=== PATIENT | female | born 1990 | race Caucasian/White ===

== ENCOUNTER 2021-11-16 08:11 | Outpatient (CLI) | payer OTHER, SELFPAY ==
--- NOTE | 2021-11-16 | ECG_ITS ---
Measurements Intervals [place] Rate: 59 P: 52 FL: 141 QRS: 35 QRSD: 84 T: 21 QT: 422 QTc: 421 Interpretive Statements SINUS BRADYCARDIA OTHERWISE NORMAL ECG NO PREVIOUS ECG AVAILABLE FOR COMPARISON Electronically Signed On 11-16-2021 16:12:11 CDT by Siddharth Montero M.D.
--- NOTE | ~2021-11-16 | XR_ITS ---
EXAMINATION: XR chest 2V 11/16/2021 10:48 INDICATION: Smoker. Bariatric surgery. PROCEDURE: 2 view chest COMPARISON: 02/07/2013 FINDINGS: The lungs are clear. The cardiomediastinal silhouette is within normal limits. There are no pleural effusions. There is no pneumothorax suspected. IMPRESSION: 1: NO ACUTE CARDIOPULMONARY DISEASE. Reviewed, dictated and finalized at location B.
[2021-11-16 08:40] LABS: Basophils Percent Auto 0.7 % (0.2-1.2); Eosinophils Absolute Auto 0.1 K/mm3 (0-0.3); Eosinophils Percent Auto 1.5 % (0-4.4); Hematocrit 40.2 % (37.0-47.0); Hemoglobin 13.3 g/dL (12.0-15.0); Immature Granulocyte Absolute 0.02 K/mm3 (0.00-0.031); Immature Granulocyte Percent A 0.3 % (0-0.5); Lymphocytes Absolute Auto 1.68 K/mm3 (0.9-3.2); Lymphocytes Percent Auto 27.5 % (18.3-44.2); Mean Corpuscular HGB Conc 33.1 g/dl (32-36); Mean Corpuscular Hemoglobin 29.6 pg (26-34); Mean Corpuscular Volume 89.3 fl (80-100); Mean Platelet Volume 10.6 fl (7.4-10.4); Monocytes Absolute Auto 0.4 K/mm3 (0.1-0.6); Monocytes Percent Auto 7.2 % (2.6-8.5); Neutrophils Absolute Auto 3.9 K/mm3 (1.3-6.7); Neutrophils Percent Auto 62.8 % (45.5-73.1); Platelet Count Result 219 k/mm3 (150-375); Red Cell Distribution Width 12.9 % (11.5-14.5); White Blood Count 6.1 K/mm3 (4.5-10.0)
[2021-11-16 08:49] LABS: INR 1.1; Prothrombin Time 13.6 Seconds (11.1-14.7)
[2021-11-16 08:52] LABS: Alanine Aminotransferase 16 U/L (4-35); Albumin Level 4.1 g/dL (3.5-5.1); Alkaline Phosphatase 65 U/L (38-126); Anion Gap 5 mmol/L (8-16); Aspartate Amino Transferase 30 U/L (14-36); Bilirubin,Total 0.4 mg/dL (0.2-1.3); Blood Urea Nitrogen 14 mg/dL (7-17); Calcium 8.5 mg/dL (8.4-10.2); Carbon Dioxide 27 mmol/L (22-30); Chloride 107 mmol/L (98-107); Estimated Glomerular Filt Rate > 60; Glucose 96 mg/dL (65-110); Potassium 4.2 mmol/L (3.4-5.0); Sodium 139 mmol/L (137-145)
[2021-11-16 08:56] LABS: Magnesium 1.8 mg/dL (1.6-2.3)
[2021-11-16 08:57] LABS: Cholesterol 173 mg/dL (0-200); HDL Direct 43 mg/dL; Hemoglobin A1C 5.1 % (<5.7)
[2021-11-16 08:59] LABS: Triglycerides 59 mg/dL (<150)
[2021-11-16 09:03] LABS: Parathyroid Intact 80.1 pg/mL (7.5-53.5)
[2021-11-16 09:06] LABS: LDL Cholesterol Direct 104 mg/dL
[2021-11-16 09:27] LABS: Iron 72 ug/dL (37-170)
[2021-11-16 09:36] LABS: Percent Iron Saturation 21 % (20-50)
[2021-11-16 10:33] LABS: Folic Acid 5.8 ng/mL (2.76->20)
[2021-11-16 10:45] LABS: Vitamin D 25 Hydroxy 31.2 ng/mL
[2021-11-22 17:38] LABS: Vitamin B1 11 nmol/L (8-30)
== END 2021-11-16 08:12 | disposition home or self-care (01) ==
LOC: ANHLAB 08:19
PROVIDERS: PCP Family Medicine
DX: E66.01 Morbid (severe) obesity due to excess calories (principal); Z01.818 Encounter for other preprocedural examination; R00.1 Bradycardia, unspecified
CPT/HCPCS: 36415; 71046; 80053; 80061; 82306; 82607; 82728; 82746; 83036; 83540; 83550; 83735; 83970; 84425; 84443; 85025; 85610; 85730; 93005

== ENCOUNTER 2021-12-14 07:58 | Outpatient (CLI) | payer OTHER, SELFPAY ==
[2021-12-14 08:57] LABS: Cortisol Random 1.01 ug/dL
== END 2021-12-14 07:59 | disposition home or self-care (01) ==
LOC: ANHLAB 08:00
PROVIDERS: PCP Family Medicine; Visit Provider Nurse Practitioner
DX: R63.5 Abnormal weight gain (principal)
CPT/HCPCS: 36415; 82533

== ENCOUNTER 2022-01-16 08:43 | Outpatient (CLI) | payer OTHER, SELFPAY ==
[2022-01-16 09:15] LABS: Alanine Aminotransferase 14 U/L (6-35); Alkaline Phosphatase 54 U/L (38-126); Anion Gap 9 mmol/L (8-16); Aspartate Amino Transferase 23 U/L (14-36); Bilirubin,Total 0.3 mg/dL (0.2-1.3); Blood Urea Nitrogen 16 mg/dL (7-17); Calcium 8.6 mg/dL (8.4-10.2); Carbon Dioxide 24 mmol/L (22-30); Chloride 109 mmol/L (98-107); Estimated Glomerular Filt Rate > 60; Glucose 101 mg/dL (65-110); Phosphorus 3.3 mg/dL (2.5-4.5); Potassium 4.1 mmol/L (3.4-5.0); Sodium 142 mmol/L (137-145)
[2022-01-16 09:27] LABS: Parathyroid Intact 47.4 pg/mL (7.5-53.5)
[2022-01-16 10:25] LABS: Vitamin D 25 Hydroxy 34.8 ng/mL
[2022-01-20 13:19] LABS: Ionized Calcium 4.9 mg/dL (4.8-5.6)
== END 2022-01-16 08:44 | disposition home or self-care (01) ==
LOC: ANHLAB 08:46
PROVIDERS: PCP Family Medicine; Visit Provider Nurse Practitioner
DX: E21.3 Hyperparathyroidism, unspecified (principal)
CPT/HCPCS: 36415; 80053; 82306; 82330; 83970; 84100

== ENCOUNTER 2022-01-17 08:29 | Outpatient (CLI) | payer OTHER, SELFPAY ==
[2022-01-17 12:47] LABS: Creatinine Urine 132.7 mg/dL
[2022-01-17 12:54] LABS: Creatinine 24 Hour Urine 1.7 gm/24 (0.8-1.8); Total Volume 24 Hour Urine 1300 ml
[2022-01-21 02:44] LABS: Total Volume 1400 mL; Urine Calcium 27.2 mg/dL
== END 2022-01-17 08:30 | disposition home or self-care (01) ==
PROVIDERS: PCP Family Medicine; Visit Provider Nurse Practitioner
DX: E21.3 Hyperparathyroidism, unspecified (principal)
CPT/HCPCS: 81050; 82340; 82570

== ENCOUNTER 2022-04-26 09:47 | Outpatient (CLI) | payer OTHER, SELFPAY ==
[2022-04-26 10:59] LABS: Alanine Aminotransferase 13 U/L (6-35); Albumin Level 4.4 g/dL (3.5-5.1); Alkaline Phosphatase 54 U/L (38-126); Anion Gap 8 mmol/L (8-16); Aspartate Amino Transferase 21 U/L (14-36); Bilirubin,Total 0.5 mg/dL (0.2-1.3); Blood Urea Nitrogen 12 mg/dL (7-17); Calcium 8.6 mg/dL (8.4-10.2); Carbon Dioxide 25 mmol/L (22-30); Chloride 106 mmol/L (98-107); Estimated Glomerular Filt Rate > 60; Glucose 91 mg/dL (65-110); Potassium 4.1 mmol/L (3.4-5.0); Sodium 139 mmol/L (137-145)
[2022-04-26 11:11] LABS: Parathyroid Intact 67.9 pg/mL (7.5-53.5)
[2022-04-26 11:17] LABS: Vitamin D 25 Hydroxy 42.1 ng/mL
[2022-04-29 23:30] LABS: LH 2.4 mIU/mL (***); Progesterone 1.4 ng/mL (***)
[2022-04-30 18:01] LABS: Testosterone Free 4.6 pg/mL (0.1-6.4); Testosterone Total 37 ng/dL (2-45)
[2022-05-01 14:45] LABS: DHEA-Sulfate 344 mcg/dL (23-266); Insulin Level Total 9.9 uIU/mL (<=19.6)
[2022-05-02 23:37] LABS: Estradiol, Ultrasensitive 31 pg/mL
== END 2022-04-26 09:48 | disposition home or self-care (01) ==
PROVIDERS: PCP Family Medicine; Visit Provider Nurse Practitioner
DX: R82.994 Hypercalciuria (principal); N92.6 Irregular menstruation, unspecified
CPT/HCPCS: 36415; 80053; 82306; 82627; 82670; 83001; 83002; 83525; 83970; 84144; 84402; 84403

== ENCOUNTER 2022-06-24 15:05 | Outpatient (CLI) | payer OTHER, SELFPAY ==
--- NOTE | ~2022-06-24 | CT_ITS ---
EXAMINATION: CT sinus wo con DATE: 06/24/2022 15:22 INDICATION: Sinusitis TECHNIQUE: Computed tomography (CT) of the paranasal sinuses was performed without intravenous contra st. The dose-length product was 288.76 mGy-cm. Automated exposure control and iterative reconstructio n technique were employed. COMPARISON: None FINDINGS: There is no significant mucosal thickening. No air-fluid levels. Mastoids are pneumatized. Leftward nasal septal deviation. Ostiomeatal units are patent. No air fluid levels or mucoperiosteal reaction IMPRESSION: 1. No significant sinus disease. Reviewed, dictated and finalized at location B.
== END 2022-06-24 15:06 | disposition home or self-care (01) ==
PROVIDERS: PCP Family Medicine; Visit Provider Otolaryngology
DX: J34.3 Hypertrophy of nasal turbinates (principal); J34.2 Deviated nasal septum; J34.89 Other specified disorders of nose and nasal sinuses; R09.81 Nasal congestion; J32.9 Chronic sinusitis, unspecified; R51.9 Headache, unspecified; R44.8 Other symptoms and signs involving general sensations and perceptions
CPT/HCPCS: 70486

== ENCOUNTER 2022-08-09 08:18 | Outpatient (CLI) | payer OTHER, SELFPAY ==
[2022-08-09 09:39] LABS: Alanine Aminotransferase 19 U/L (6-35); Albumin Level 4.8 g/dL (3.5-5.1); Alkaline Phosphatase 60 U/L (38-126); Anion Gap 8 mmol/L (8-16); Aspartate Amino Transferase 23 U/L (14-36); Bilirubin,Total 0.7 mg/dL (0.2-1.3); Blood Urea Nitrogen 18 mg/dL (7-17); Calcium 9.2 mg/dL (8.4-10.2); Carbon Dioxide 25 mmol/L (22-30); Chloride 104 mmol/L (98-107); Estimated Glomerular Filt Rate > 60; Glucose 92 mg/dL (65-110); Potassium 4.5 mmol/L (3.4-5.0); Sodium 137 mmol/L (137-145)
[2022-08-09 10:08] LABS: Vitamin D 25 Hydroxy 33.5 ng/mL
== END 2022-08-09 08:19 | disposition home or self-care (01) ==
LOC: ANHLAB 08:21
PROVIDERS: PCP Family Medicine; Visit Provider Nurse Practitioner
DX: R82.994 Hypercalciuria (principal)
CPT/HCPCS: 36415; 80053; 82306; 83970

== ENCOUNTER 2022-08-12 08:19 | Outpatient (CLI) | payer OTHER, SELFPAY ==
[2022-08-12 10:39] LABS: Creatinine 24 Hour Urine 1.4 gm/24 (0.8-1.8); Total Volume 24 Hour Urine 750 ml
[2022-08-15 12:48] LABS: Total Volume 800 mL; Urine Calcium 20.2 mg/dL
== END 2022-08-12 08:20 | disposition home or self-care (01) ==
LOC: ANHLAB 08:21
PROVIDERS: PCP Family Medicine; Visit Provider Nurse Practitioner
DX: R82.994 Hypercalciuria (principal)
CPT/HCPCS: 81050; 82340; 82570

== ENCOUNTER 2022-10-31 08:03 | Outpatient (CLI) | payer OTHER, SELFPAY ==
[2022-10-31 09:00] LABS: Basophils Absolute Auto 0.1 K/mm3 (0.0-0.1); Basophils Percent Auto 0.8 % (0.2-1.2); Eosinophils Absolute Auto 0.1 K/mm3 (0-0.3); Eosinophils Percent Auto 1.8 % (0-4.4); Hematocrit 41.1 % (37.0-47.0); Hemoglobin 13.5 g/dL (12.0-15.0); Immature Granulocyte Absolute 0.02 K/mm3 (0.00-0.031); Immature Granulocyte Percent A 0.3 % (0-0.5); Lymphocytes Percent Auto 35.2 % (18.3-44.2); Mean Corpuscular HGB Conc 32.8 g/dl (32-36); Mean Corpuscular Hemoglobin 30.2 pg (26-34); Mean Corpuscular Volume 91.9 fl (80-100); Mean Platelet Volume 10.9 fl (7.4-10.4); Monocytes Absolute Auto 0.5 K/mm3 (0.1-0.6); Monocytes Percent Auto 7.5 % (2.6-8.5); Neutrophils Absolute Auto 3.6 K/mm3 (1.3-6.7); Neutrophils Percent Auto 54.4 % (45.5-73.1); Platelet Count Result 220 k/mm3 (150-375); Red Blood Count 4.47 M/mm3 (4.2-5.4); Red Cell Distribution Width 13.2 % (11.5-14.5); White Blood Count 6.5 K/mm3 (4.5-10.0)
[2022-10-31 09:20] LABS: Iron 55 ug/dL (37-170); Rheumatoid Factor < 8.6 IU/ML (<12)
[2022-10-31 09:29] LABS: Percent Iron Saturation 14 % (20-50)
[2022-10-31 09:38] LABS: Free T4 Free Thyroxine 1.08 ng/mL (0.78-2.19)
[2022-10-31 10:22] LABS: Folic Acid 8.2 ng/mL (2.76->20)
[2022-11-03 04:57] LABS: Thyroid Peroxidase Antibodies 4 IU/mL (<9)
[2022-11-05 10:07] LABS: Reference Lab Test Result 56
[2022-11-11 09:14] LABS: Pancreatic Elastase, Stool 70
== END 2022-10-31 08:04 | disposition home or self-care (01) ==
PROVIDERS: PCP Family Medicine; Visit Provider Internal Medicine Endocrinology, Diabetes & Metabolism
DX: R53.83 Other fatigue (principal); R14.0 Abdominal distension (gaseous); E04.9 Nontoxic goiter, unspecified
CPT/HCPCS: 36415; 82024; 82607; 82653; 82728; 82746; 83540; 83550; 84439; 84443; 85025; 86003; 86038; 86376; 86430

== ENCOUNTER 2022-11-01 07:57 | Outpatient (CLI) | payer OTHER, SELFPAY ==
[2022-11-01 10:27] LABS: Cortisol Baseline 3.65 ug/dL
== END 2022-11-01 07:58 | disposition home or self-care (01) ==
LOC: ANHLAB 08:00
PROVIDERS: PCP Family Medicine; Visit Provider Internal Medicine Endocrinology, Diabetes & Metabolism
DX: R53.83 Other fatigue (principal); R14.0 Abdominal distension (gaseous); E04.9 Nontoxic goiter, unspecified; R63.5 Abnormal weight gain
CPT/HCPCS: 36415; 80299; 82533; 82653; 87324

== ENCOUNTER 2022-11-13 14:45 | Outpatient (CLI) | payer OTHER, SELFPAY ==
--- NOTE | ~2022-11-13 | US_ITS ---
EXAMINATION: US thyroid DATE: 11/13/2022 15:19 INDICATION: Goiter. TECHNIQUE: Multiple ultrasound images of the thyroid were obtained. COMPARISON: None. FINDINGS: The right thyroid lobe measures 5.5 x 2.2 x 1.5 cm. The left thyroid lobe measures 4.2 x 1.3 x 1.8 c m. There is normal echotexture and echogenicity throughout the thyroid gland. No discrete nodules id entified. Normal vascular flow is present. IMPRESSION: 1. Normal thyroid. Reviewed, dictated and finalized at location A. IMPRESSION: 1. Normal thyroid.
== END 2022-11-13 14:46 | disposition home or self-care (01) ==
PROVIDERS: PCP Physician Assistant; Visit Provider Internal Medicine Endocrinology, Diabetes & Metabolism
DX: E04.9 Nontoxic goiter, unspecified (principal)
CPT/HCPCS: 76536

== ENCOUNTER 2022-12-05 10:57 | Emergency (ER) | payer OTHER, SELFPAY ==
--- NOTE | ~2022-12-05 | CT_ITS ---
EXAMINATION: CT lumbar spine wo con DATE: 12/05/2022 13:15 INDICATION: Right-sided lumbar radiculopathy. TECHNIQUE: Computed tomography (CT) of the lumbar spine was performed without intravenous contrast. A utomated exposure control and iterative reconstruction technique were employed. The dose-length produ ct was 1017.74 mGy-cm. COMPARISON: Lumbar spine MRI 02/12/2011 FINDINGS: Bone alignment is normal. Vertebral body heights and intervertebral disc heights are normal . L5 is a transitional segment. The following disc levels are specifically discussed: L1-L2: The disc does not extend beyond the endplate margin. There is mild bilateral facet joint osteo arthritis. There is no neural foraminal stenosis. There is no central canal stenosis. L2-L3: The disc does not extend beyond the endplate margin. There is mild right facet joint osteoarth ritis. There is no neural foraminal stenosis. There is no central canal stenosis. L3-L4: The disc does not extend beyond the endplate margin. There is no facet joint osteoarthritis. T here is no neural foraminal stenosis. There is no central canal stenosis. L4-L5: The disc is bulging. There is mild bilateral facet joint osteoarthritis. There is mild bilater al neural foraminal stenosis. There is mild central canal stenosis. L5-S1: The disc does not extend beyond the endplate margin. There is no facet joint osteoarthritis. T here is no neural foraminal stenosis. There is no central canal stenosis. IMPRESSION: 1. Mild lumbar spondylosis. Reviewed, dictated and finalized at location A. IMPRESSION: 1. Mild lumbar spondylosis.
[2022-12-05 11:31] VITALS: BP 140/100; PULSE 82; RESP 18; TEMP 36.7; O2SAT 100
--- NOTE | 2022-12-05 12:19 | ED.BACK ---
HPI - Back Pain/Injury General Chief Complaint: Back Pain/Injury Stated Complaint: lower back pain Time Seen by Provider: 12/05/22 11:37 Source: patient Mode of arrival: ambulatory Limitations: no limitations History of Present Illness HPI Narrative: This is a 32-year-old female with PMH of low back pain who presents to the ED with chief complaint of low back pain onset x4 days. Patient states that she picked up her kid outside while they were playing on Friday and had pain the following day. Patient states that she has had problems with full extension. Pain is in the right lower back and extends down the right posterior lower extremity. Denies numbness, weakness, saddle anesthesia, urinary retention or bowel incontinence. Related Data Home Medications Medication Instructions Recorded Confirmed sumatriptan succinate 50 mg tablet 50 mg PO ONCE 09/10/21 06/03/22 liraglutide 0.6 mg/0.1 mL (18 mg/3 0.6 mg subcut DAILY 06/03/22 06/03/22 mL) subcutaneous pen injector (Victoza 2-Dakota) Allergies Allergy/AdvReac Type Severity Reaction Status Date / Time No Known Allergies Allergy Unknown Verified 09/13/22 09:38 Review of Systems Review of Systems: CONSTITUTIONAL: Denies fever, chills, or sweats. EYES: Denies visual changes, redness, or discharge. SKIN: Denies rash or itching. MUSCULOSKELETAL: Endorses back pain. Denies neck pain, joint pain, or myalgia. NEUROLOGIC: Denies headache, numbness, dizziness, or weakness. PSYCHIATRIC: Denies anxiety or depression. [facility] Surgical History Surgical History H/O hand surgery (~09/2021) Social History Social History Smoking status: Current every day smoker Tobacco type: cigarettes Alcohol intake: never Substance use: never Lack of Transportation: No Lack of Food: Never True Current Housing: I Have Housing Concerned About Future Housing: No Difficulty Paying Gas/Electric Bills: No Difficulty Paying for Meds: No Currently Unemployed: No Education: High School Diploma/GED Difficulty w/ Childcare or Family Care: No Exam Narrative: GENERAL: Well-appearing, well-nourished, and in no acute distress. HEAD: Normocephalic, atraumatic. EXTREMITIES: Minimal midline lumbar spinal tenderness. No cervical, thoracic, sacral spinal tenderness. Right SI tenderness present. Straight leg raise test on the right positive. MSK exam is otherwise benign. Normal range of motion. No edema. SKIN: Warm, dry, no rash. No overlying skin changes NEURO: Alert and oriented x3. No focal deficits. PSYCH: Normal mood and affect. Course Vital Signs Vital signs: Vital Signs Temperature 98.1 F 12/05/22 11:31 Pulse Rate 82 12/05/22 11:31 Respiratory Rate 18 12/05/22 11:31 Blood Pressure 140/100 H 12/05/22 11:31 Pulse Oximetry 100 12/05/22 11:31 Oxygen Delivery Room Air 12/05/22 11:31 Temperature 98.1 F 12/05/22 11:31 Pulse Rate 82 12/05/22 11:31 Respiratory Rate 18 12/05/22 11:31 Blood Pressure 140/100 H 12/05/22 11:31 Pulse Oximetry 100 12/05/22 11:31 Oxygen Delivery Room Air 12/05/22 11:31 MDM - Back Pain/Injury MDM Narrative Medical decision making narrative: This is a 32-year-old female with PMH of low back pain who presents to the ED with acute on chronic low back pain. Started Friday after picking up her kids while playing outside. Vital stable. Slightly hypertensive due to pain. CT of the lumbar spine was obtained and does show a disc herniation at the L4-L5 level. This is consistent with her exam as she does have a positive straight leg raise on the right. No red flag back signs or symptoms. She should follow-up with PCP on this. She will likely need therapy for this. Dose of prednisone given in the ED. Also given a short dose of the Medrol Dosepak. Patient is understanding and agreeable with plan for dis
[2022-12-05] MEDS: predniSONE 20 MG TABLET 40 MG PO (13:15)
== END 2022-12-05 13:59 | disposition home or self-care (01) ==
PROVIDERS: Emergency Provider Physician Assistant; PCP Physician Assistant
DX: M51.26 Other intervertebral disc displacement, lumbar region (principal); F17.210 Nicotine dependence, cigarettes, uncomplicated
CPT/HCPCS: 72131; 99284; J7512

== ENCOUNTER 2023-04-08 08:31 | Outpatient (CLI) | payer OTHER, SELFPAY ==
[2023-04-08 09:49] LABS: Cortisol Random 9.31 ug/dL
[2023-04-12 13:37] LABS: Adrenocorticotropic Hormone 8 pg/mL (6-50)
== END 2023-04-08 08:32 | disposition home or self-care (01) ==
LOC: ANHLAB 08:32
PROVIDERS: PCP Physician Assistant; Visit Provider Internal Medicine Endocrinology, Diabetes & Metabolism
DX: R94.7 Abnormal results of other endocrine function studies (principal)
CPT/HCPCS: 36415; 82024; 82533

== ENCOUNTER 2023-04-14 08:44 | Outpatient (CLI) | payer OTHER, SELFPAY ==
[2023-04-23 12:01] LABS: Cortisol, Saliva 0.16 mcg/dL
== END 2023-04-14 08:45 | disposition home or self-care (01) ==
LOC: ANHLAB 08:45
PROVIDERS: PCP Physician Assistant; Visit Provider Internal Medicine Endocrinology, Diabetes & Metabolism
DX: R94.7 Abnormal results of other endocrine function studies (principal)
CPT/HCPCS: 82530

== ENCOUNTER 2023-07-15 15:22 | Outpatient (CLI) | payer OTHER, SELFPAY ==
--- NOTE | ~2023-07-15 | XR_ITS ---
XR chest 2V DATE: 07/15/2023 15:43 INDICATION: Pneumonia TECHNIQUE: PA and lateral views COMPARISON: 11/16/2021 2 view chest FINDINGS: Normal heart size. No hilar or mediastinal enlargement. Mild left upper lobe infiltrate suggests pneumonia. The remaining lung maloney appear clear. No pleural effusion or pulmonary vascular congestion or pneum othorax. Included skeletal structures are unremarkable. IMPRESSION: Left upper lobe infiltrates suggesting pneumonia Reviewed, dictated and finalized at location L. ER WORKER
== END 2023-07-15 15:23 | disposition home or self-care (01) ==
PROVIDERS: PCP Emergency Medicine; Visit Provider Emergency Medicine
DX: R91.8 Other nonspecific abnormal finding of lung field (principal); J18.9 Pneumonia, unspecified organism
CPT/HCPCS: 71046

== ENCOUNTER 2024-03-19 10:12 | Outpatient (CLI) | payer OTHER, SELFPAY ==
[2024-03-19 10:41] LABS: Basophils Percent Auto 0.6 % (0.2-1.2); Eosinophils Absolute Auto 0.1 K/mm3 (0-0.3); Eosinophils Percent Auto 1.5 % (0-4.4); Hematocrit 42.2 % (37.0-47.0); Immature Granulocyte Absolute 0.02 K/mm3 (0.00-0.031); Immature Granulocyte Percent A 0.3 % (0-0.5); Lymphocytes Absolute Auto 1.82 K/mm3 (0.9-3.2); Lymphocytes Percent Auto 27.2 % (18.3-44.2); Mean Corpuscular HGB Conc 33.2 g/dl (32-36); Mean Corpuscular Volume 90.6 fl (80-100); Mean Platelet Volume 10.9 fl (7.4-10.4); Monocytes Absolute Auto 0.5 K/mm3 (0.1-0.6); Monocytes Percent Auto 7.9 % (2.6-8.5); Neutrophils Absolute Auto 4.2 K/mm3 (1.3-6.7); Neutrophils Percent Auto 62.5 % (45.5-73.1); Platelet Count Result 231 k/mm3 (150-375); Red Blood Count 4.66 M/mm3 (4.2-5.4); Red Cell Distribution Width 12.5 % (11.5-14.5); White Blood Count 6.7 K/mm3 (4.5-10.0)
[2024-03-19 10:51] LABS: Alanine Aminotransferase 16 U/L (6-35); Albumin Level 4.4 g/dL (3.5-5.1); Alkaline Phosphatase 44 U/L (38-126); Anion Gap 10 mmol/L (4-12); Aspartate Amino Transferase 24 U/L (14-36); Bilirubin,Total 0.5 mg/dL (0.2-1.3); Blood Urea Nitrogen 21 mg/dL (7-17); Calcium 9.3 mg/dL (8.4-10.2); Carbon Dioxide 24 mmol/L (22-30); Chloride 104 mmol/L (98-107); Estimated Glomerular Filt Rate > 60; Glucose 88 mg/dL (65-110); Potassium 4.3 mmol/L (3.4-5.0); Sodium 138 mmol/L (137-145)
[2024-03-19 10:54] LABS: Hemoglobin A1C 5.1 % (<5.7)
== END 2024-03-19 10:13 | disposition home or self-care (01) ==
LOC: ANHLAB 10:13
PROVIDERS: PCP Emergency Medicine; Visit Provider Emergency Medicine
DX: Z79.899 Other long term (current) drug therapy (principal)
CPT/HCPCS: 36415; 80053; 83036; 84443; 85025

== ENCOUNTER 2024-04-29 19:28 | Outpatient (NON) | payer OTHER, SELFPAY | END 2024-04-29 19:29 | disposition home or self-care (01) | LOC: ANHGOSHLAB 19:30 | PROVIDERS: PCP Emergency Medicine; Visit Provider Emergency Medicine | DX: R39.9 Unspecified symptoms and signs involving the genitourinary system (principal) | CPT/HCPCS: 87086; 87088 ==

== ENCOUNTER 2024-11-24 11:25 | Emergency (ER) | payer OTHER, SELFPAY ==
--- NOTE | ~2024-11-24 | CT_ITS ---
EXAMINATION: CT abdomen pelvis w con DATE: 11/24/2024 12:44 INDICATION: Right-sided pyelonephritis. Right upper quadrant abdominal pain. TECHNIQUE: Computed tomography (CT) of the abdomen and pelvis was performed with 100 mL Omnipaque 350 intravenous contrast. Automated exposure control and iterative reconstruction technique were employe d. The dose-length product was 708.46 mGy-cm. COMPARISON: Ultrasound 11/24/2024, CT lumbar spine 12/05/2022 FINDINGS: The visualized portions of the lung bases are clear without pneumonia or pleural effusion. The heart size is normal. No pericardial effusion. The liver, gallbladder, spleen, pancreas, and adre nal glands are normal. There is mild bilateral hydronephrosis. There are no dilated loops of bowel. T he appendix is normal. There are no pathologically enlarged lymph nodes. There is no free intraperito claudia fluid. There is mild lumbar spondylosis. IMPRESSION: 1. Mild bilateral hydronephrosis, new from 12/05/22. Reviewed, dictated and finalized at location A.
--- NOTE | ~2024-11-24 | US_ITS ---
EXAMINATION: US abdomen limited DATE: 11/24/2024 12:18 INDICATION: Right upper quadrant abdominal pain. TECHNIQUE: Multiple grayscale and Doppler ultrasound images of the abdomen were obtained. COMPARISON: None FINDINGS: The visualized portions of the head, body, and tail of the pancreas are normal. The liver i s normal without focal lesion. There is normal flow in main portal vein. The gallbladder is normal in size. No gallstones or gallbladder wall thickening. There is no sonographic Whitfield's sign. The commo n duct is normal and measures 3 mm. IMPRESSION: 1. Normal right upper quadrant ultrasound. Reviewed, dictated and finalized at location A.
[2024-11-24 11:27] VITALS: BP 135/79; PULSE 74; RESP 18; TEMP 36.6; O2SAT 99
[2024-11-24 11:43] VITALS: BP 118/78; PULSE 64; RESP 16; O2SAT 97
--- NOTE | 2024-11-24 11:46 | ED_ITS ---
HPI - Abdominal Pain General Chief Complaint: Abdominal Pain Stated Complaint: Right side abdominal pain Time Seen by Provider: 11/24/24 11:41 History of Present Illness HPI narrative: 34-year-old female with no significant pertinent past medical history presenting to the emergency room with right upper quadrant pain for the last 2 days. Pain is intermittent in nature, initially dull and aching and then followed by sharp stabbing sensations. Associated with some nausea without vomiting. Normal bowel movements, no dysuria. Denies chance of . No trauma or injury. No abdominal surgical history. She was otherwise in her normal state of health. Has not noticed any association with the pain when she eats but knows that she got nauseous after dinner last night. Related Data Allergies Allergy/AdvReac Type Severity Reaction Status Date / Time coconut Allergy Intermediate Rash Verified 11/24/24 11:26 Review of Systems 2 Review of Systems: As reviewed above in [facility] Surgical History Surgical History History of back surgery H/O hand surgery (~09/2021) Social History Social History Smoking status: Current every day smoker Tobacco type: e-cigarettes/vaping Alcohol intake: never Substance use: never Lack of Transportation: No Lack of Food: Never True Current Housing: I Have Housing Concerned About Future Housing: No Difficulty Paying Gas/Electric Bills: No Difficulty Paying for Meds: No Currently Unemployed: No Education: High School Diploma/GED Difficulty w/ Childcare or Family Care: No Exam 2 Narrative: GENERAL: [Well-appearing, well-nourished, and in no acute distress.] HEAD: [Normocephalic, atraumatic.] EYES: [PERRLA and EOMI.] ENT: Nares clear, no rhinorrhea or epistaxis. Mucous membranes moist. NECK: Supple. CHEST: [Clear to auscultation. No respiratory distress.] HEART: [Regular rate and rhythm]. No murmur heard. [Normal peripheral pulses.] ABDOMEN: [Soft, nondistended], tender in the right upper quadrant with a positive Whitfield sign, [No rigidity or guarding] EXTREMITIES: Normal range of motion. [No edema.] SKIN: Warm, dry, no rash. NEURO: [No focal deficits]. Alert and oriented [x3.] PSYCH: [Normal mood and affect.] Course Vital Signs Vital signs: Vital Signs Temperature 36.6 C 11/24/24 11:27 Pulse Rate 74 11/24/24 11:27 Respiratory Rate 18 11/24/24 11:27 Blood Pressure 135/79 11/24/24 11:27 Pulse Oximetry 99 11/24/24 11:27 Oxygen Delivery Room Air 11/24/24 11:27 Temperature 36.6 C 11/24/24 11:27 Pulse Rate 79 11/24/24 15:49 Respiratory Rate 16 11/24/24 15:49 Blood Pressure 115/79 11/24/24 15:49 Pulse Oximetry 100 11/24/24 15:49 Oxygen Delivery Room Air 11/24/24 11:27 MDM - Abdominal Pain MDM Narrative Medical decision making narrative: 34-year-old female presenting with right-sided upper quadrant abdominal pain associated with nausea without vomiting. Vital signs reassuring, no fever, tachycardia, hypoxia blood pressure elevations. She is otherwise healthy with no abdominal surgical history. She is tender in the right upper quadrant with a positive Whitfield sign. No history of gallbladder disease or cholecystitis to her knowledge. Associated nauseousness after eating last night, pain going on for 2 days. Considerations presently are for cholelithiasis versus cholecystitis. Low suspicion for renal colic or kidney stones. No present suspicion for liver pathology. Workup was ordered including a CBC, CMP, lipase, urinalysis and test. Right upper quadrant ultrasound was ordered. She was provided morphine for analgesia, Zofran fluid bolus and re-evaluated frequently. Workup shows no leukocytosis or anemia. Normal platelet count. Electrolytes within normal limits, normal renal function panel. Normal liver function panel. Urinalysis with signs of urinary tract infection with bacteria and white blood cells, leukocyte esterase. Negative test. Right upper quadrant ultrasound was unremarkable. CT scan was ordered this time for further delineation and to rule out pyelonephritis or obstructing kidney stone. CT scan shows mild bilateral hydro but no signs of pyelonephritis. Normal appendix. Given patient's urinary tract infection she was given a dose of Rocephin here but politely declined and wished to go home on oral antibiotics instead. She was given a prescription for Bactrim and encouraged to follow-up with her primary care provider or return with any new or worsening concerns. Medical Records Attestation: I reviewed the patient's medical records. Lab Data Attestation: I reviewed the patient's lab results. 11/24/24 11:47 11/24/24 11:47 Labs: Lab Results 11/24/24 11/24/24 Range/Units 11:46 11:47 WBC 8.5 (4.5-10.0) K/mm3 RBC 4.57 (4.2-5.4) M/mm3 Hgb 14.0 (12.0-15.0) g/dL Hct 40.7 (37.0-47.0) % MCV 89.1 (80-100) fl MCH 30.6 (26-34) pg MCHC 34.4 (32-36) g/dl RDW 12.5 (11.5-14.5) % Plt Count 227 (150-375) k/mm3 MPV 10.7 H (7.4-10.4) fl Immature Gran % (Auto) 0.2 (0-0.5) % Neut % (Auto) 63.9 (45.5-73.1) % Lymph % (Auto) 27.8 (18.3-44.2) % Sully % (Auto) 6.7 (2.6-8.5) % Eos % (Auto) 0.9 (0-4.4) % Baso % (Auto) 0.5 (0.2-1.2) % Lymph # (Auto) 2.37 (0.9-3.2) K/mm3 Sully # (Auto) 0.6 (0.1-0.6) K/mm3 Eos # (Auto) 0.1 (0-0.3) K/mm3 Baso # (Auto) 0.0 (0.0-0.1) K/mm3 Abs Immat Gran (auto) 0.02 (0.00-0.031) K/mm3 Absolute Neuts (auto) 5.4 (1.3-6.7) K/mm3 Absolute Nucleated RBC 0.000 (0.0-0.012) K/mm3 Nucleated RBC % 0.0 (0.0-0.2) % Sodium 136 L (137-145) mmol/L Potassium 3.8 (3.4-5.0) mmol/L Chloride 102 (98-107) mmol/L Carbon Dioxide 23 (22-30) mmol/L Anion Gap 11 (4-12) mmol/L BUN 24 H (7-17) mg/dL Creatinine 0.86 (0.7-1.0) mg/dL Estim Creat Clear Calc 83 ml/min Estimated GFR > 60 (59 - ) Glucose 90 (65-110) mg/dL Calcium 9.9 (8.4-10.2) mg/dL Total Bilirubin 0.9 (0.2-1.3) mg/dL AST 22 (14-36) U/L ALT 16 (6-35) U/L Alkaline Phosphatase 42 (38-126) U/L Total Protein 8.0 (6.3-8.2) g/dL Albumin 4.9 (3.5-5.1) g/dL Lipase 51 (23-300) U/L Urine Color Yellow (Yellow) Urine Appearance Cloudy H (Clear) Urine pH 5.5 (5.0-9.0) Ur Specific [place] 1.017 (1.001-1.035) Urine Protein Negative (Negative) mg/dL Urine Glucose (UA) Negative (Negative) mg/dL Urine Ketones Trace H (Negative) mg/dL Ur Blood (Man) Negative (Negative) Urine Nitrate Negative (Negative) Urine Bilirubin Negative (Negative) Urine Urobilinogen 0.2 (<2.0) mg/dL Leukocyte Esterase Rfl 2+ H (Negative) SANTINO/UL Urine RBC 0-2 (0-2) /hpf Urine WBC 21-50 H (0-3) /hpf Ur Squamous Epith Cells Moderate (Few) /hpf Urine Bacteria 2+ H /hpf Urine Casts 0-2 POC Urine HCG, Qual Negative (Negative) Imaging Data Attestation: I personally reviewed and interpreted this imaging study as follows: Radiologist's impression: ITS Impressions Abdomen Ultrasound 11/24/24 12:24 IMPRESSION: 1. Normal right upper quadrant ultrasound. Abdomen/Pelvis CT 11/24/24 12:47 IMPRESSION: 1. Mild bilateral hydronephrosis, new from 12/05/22. Discharge Plan Discharge Clinical Impression: UTI (urinary tract infection), Abdominal pain, Hydronephrosis Patient Disposition: Home, Self-Care Condition: Stable Instructions: Antibiotic Form, Urinary Tract Infection in Women (DC) Patient Language: Kyrgyz Prescriptions: New sulfamethoxazole-trimethoprim [Bactrim DS] 800-160 mg tablet 1 tablet PO Q12H Qty: 14 0RF No Action sulfamethoxazole-trimethoprim [Bactrim DS] 800-160 mg tablet 1 tablet PO Q12H Qty: 14 0RF albuterol sulfate 90 mcg/actuation HFA aerosol inhaler 1 inh inhalation Q4H PRN (Reason: shortness of breath or wheezing) Qty: 8.5 0RF sumatriptan succinate 50 mg tablet See Rx Instructions PO .COMPLEX Qty: 14 0RF Rx Instructions: take 1 tab at onset of headache; if no relief may repeat 1 tab after at least 2 hrs; max = 4 tabs/24 hr PO budesonide-formoterol [Symbicort] 80-4.5 mcg/actuation HFA aerosol inhaler 2 puff inhalation Q12H Qty: 10.2 5RF Zepbound 2.5 mg/0.5 mL pen injector 2.5 mg subcut WEEKLY Qty: 2 0RF Rx Instructions: for 4 weeks Follow-up/Referrals: Ursula Hatch APRN [Primary Care Provider] - Time of Disposition: 15:47
[2024-11-24 11:48] LABS: BEDSIDEPREGUCG Negative (Negative)
[2024-11-24 11:54] LABS: Basophils Percent Auto 0.5 % (0.2-1.2); Eosinophils Absolute Auto 0.1 K/mm3 (0-0.3); Eosinophils Percent Auto 0.9 % (0-4.4); Hematocrit 40.7 % (37.0-47.0); Immature Granulocyte Absolute 0.02 K/mm3 (0.00-0.031); Immature Granulocyte Percent A 0.2 % (0-0.5); Lymphocytes Absolute Auto 2.37 K/mm3 (0.9-3.2); Lymphocytes Percent Auto 27.8 % (18.3-44.2); Mean Corpuscular HGB Conc 34.4 g/dl (32-36); Mean Corpuscular Hemoglobin 30.6 pg (26-34); Mean Corpuscular Volume 89.1 fl (80-100); Mean Platelet Volume 10.7 fl (7.4-10.4); Monocytes Absolute Auto 0.6 K/mm3 (0.1-0.6); Monocytes Percent Auto 6.7 % (2.6-8.5); Neutrophils Absolute Auto 5.4 K/mm3 (1.3-6.7); Neutrophils Percent Auto 63.9 % (45.5-73.1); Platelet Count Result 227 k/mm3 (150-375); Red Blood Count 4.57 M/mm3 (4.2-5.4); Red Cell Distribution Width 12.5 % (11.5-14.5); White Blood Count 8.5 K/mm3 (4.5-10.0)
[2024-11-24] MEDS: MORPHINE SULFATE (*CRX) 4 MG/ML INJ IV PUSH (11:59)
[2024-11-24] MEDS: LACTATED RINGERS 1,000 ML 999 ML IV CONT (11:59)
[2024-11-24] MEDS: ONDANSETRON INJ 4 MG/2 ML VIAL IV PUSH (11:59)
[2024-11-24 12:00] LABS: Add Urine Microscopic? YES; Appearance Urine Cloudy (Clear); Bacteria Urine 2+ /hpf; Bilirubin Urine Negative (Negative); Blood Urine Negative (Negative); Color Urine Yellow (Yellow); Glucose Urine UA Negative (Negative); Ketones Urine Trace mg/dL (Negative); Leukocyte Esterase Ur 2+ LEU/UL (Negative); Nitrate Urine Negative (Negative); Non Pathogenic Casts 0-2; Protein Urine Negative (Negative); RBC Urine 0-2 /hpf (0-2); Specific Grav Ur 1.017 (1.001-1.035); Squamous Epithelial Cell Urine Moderate /hpf (Few); Urobilinogen Urine 0.2 mg/dL (<2.0); WBC Urine 21-50 /hpf (0-3); pH Urine 5.5 (5.0-9.0)
--- NOTE | 2024-11-24 12:03 | PC.NURSE ---
automated equipment engineer technician at bedside.
[2024-11-24 12:06] LABS: Alanine Aminotransferase 16 U/L (6-35); Albumin Level 4.9 g/dL (3.5-5.1); Alkaline Phosphatase 42 U/L (38-126); Anion Gap 11 mmol/L (4-12); Aspartate Amino Transferase 22 U/L (14-36); Bilirubin,Total 0.9 mg/dL (0.2-1.3); Blood Urea Nitrogen 24 mg/dL (7-17); Calcium 9.9 mg/dL (8.4-10.2); Carbon Dioxide 23 mmol/L (22-30); Chloride 102 mmol/L (98-107); Estimated CRCL calculation 83 ml/min; Estimated Glomerular Filt Rate > 60; Glucose 90 mg/dL (65-110); Lipase 51 U/L (23-300); Potassium 3.8 mmol/L (3.4-5.0); Sodium 136 mmol/L (137-145)
--- OUTSIDE RECORDS SUMMARY | 2024-11-24 13:01 | XMS_ITS | Referral Summary ---
Author Organization [place] [id number] [facility] Address [address] [place] [address] Care Team Providers Care Geophysics Teacher Name Role Phone Arleen Vu MD Primary Care Provider + Allergies Active Allergy Reactions Criticality Noted Date Comments Coconut Hives Medium 04/01/2019 Medications EPINEPHrine 0.3 mg/0.3 mL auto-injection syringeIndications :Anaphylaxis Inject 0.3 mL (0.3 mg total) into the muscle as instructed as needed for anaphylaxis Call 911 after use. 2 each 1 06/11/20 21 Active triamcinolone (KENALOG) 0.1 % creamIndications:D ermatitis Apply to affected area 1-2 times daily as needed. 80 g 1 09/17/19 22 Active Victoza 3-Dakota 0.6 mg/0.1 mL (18 mg/3 mL) injection 05/03/20 22 Active TRUEplus Pen Needle 32 gauge x 5/32 needle USE DIRECTED WITH VICTOZA 03/13/20 22 Active SUMAtriptan (IMITREX) 100 mg tabletIndications: Chronic migraine without aura without status migrainosus, not intractable Take 1 tablet (100 mg total) by mouth once as needed for migraine May repeat dose once in 2 hours if no relief. Do not exceed 2 doses in 24 hours. 9 tablet 11 05/08/20 22 Active spironolactone (ALDACTONE) 50 mg tablet Take 100 mg by mouth daily 06/10/20 22 Active guaiFENesin-codein e (GUAITUSS AC) liquid 100-10 mg/5 mLIndications:Bron chitis Take 5-10 mL by mouth every 4 (four) hours as needed for cough 120 mL 06/19/20 22 Active ondansetron (ZOFRAN) 4 mg tabletIndications: Chronic nonintractable headache, unspecified headache type Take 1 tablet (4 mg total) by mouth every 8 (eight) hours as needed for nausea or vomiting 10 tablet 2 11/09/19 23 Active methylPREDNISolone (Medrol, Dakota,) 4 mg Dosepack Take as directed on package 1 packet 01/23/20 23 Active Active Problems Problem Noted Date Diagnosed Date Abnormal weight 01/14/2023 01/22/2023 Injury of finger 01/09/2023 01/22/2023 Intertrigo 11/08/2022 01/22/2023 Nicotine dependence 11/08/2022 01/22/2023 Prediabetes 11/08/2022 01/22/2023 Hirsutism 06/10/2022 01/22/2023 Hypercalciuria 03/12/2022 01/22/2023 Irregular periods 03/12/2022 01/22/2023 Hyperparathyroidism 12/10/2021 01/22/2023 Snoring 11/27/2021 Assessment & Plan (11/27/2021 9:09 AM CDT): The patient presents with snoring and excessive daytime hypersomnia. I have recommended proceeding with a nocturnal polysomnogram with a split night protocol if necessary and no MSLT. She will follow-up here in 3 months. Abnormal weight gain 11/19/2021 Bilateral carpal tunnel syndrome 09/26/2021 Dermatitis 08/14/2021 Assessment & Plan (08/14/2021 8:44 AM SCHOOL COOK): Overall Condition Chronic Condition: Uncontrolled. Treatment: New Medication: oral tablets and creams prescribed as below. Follow up in 1 month Paresthesia of hand, bilateral 07/24/2021 Assessment & Plan (07/24/2021 9:16 AM SCHOOL COOK): Acute with a reported past history of carpal tunnel syndrome bilaterally, likely acute exacerbation of underlying condition-ordered a nerve conduction study with EMG, advised that she should be getting a call to schedule the test. Informed can wear braces at night if relieve symptoms. Informed will be contacted with results once test is completed, but can call office if has not been notified within 48 hours, with further recommendations depending on outcome of test. Chronic nonintractable headache 06/11/2021 Assessment & Plan (08/14/2021 8:45 AM SCHOOL COOK): Overall Condition Chronic Condition: Uncontrolled. Treatment: Recommended Therapeutic Lifestyle Modification and Medication Changes: Increase topiramate to 50mg BID Follow up in 3 months Assessment & Plan (06/11/2021 10:26 AM CDT): Overall Condition Chronic Condition: Uncontrolled. Treatment: New Medication: Start Topiramate. and Medication Changes: Stop propranol. Follow up in 3 months Generalized anxiety disorder 04/30/2021 Assessment & Plan (06/11/2021 10:26 AM CDT): Overall Condition Chronic Condition: Uncontrolled. Treatment: Recommended Therapeutic Lifestyle Modification and Medication Changes: Increase Lexapro to 20mg Follow up in 3 months Assessment & Plan (04/30/2021 12:38 PM CDT): Overall Condition Chronic Condition: Uncontrolled and New Diagnosis. Treatment: New Medication: Lexapro Follow up in 3 months Encounter for annual health examination 04/16/20 21 Class 3 severe obesity due t o excess calories without serious comorbidity with body mass index (BMI) of 45.0 to 49.9 in adult 02/05/2021 Assessment & Plan (11/19/2021 4:26 PM CDT): Notes: Minimal jammie-operative risk forModerate Risk Gastric Sleeve Surgery. Medically clear for on around November-December 2021. Overal Risk Factors Dx: Morbidly Obese. Recommedations: Pending Labs prior to surgery: WNL. pending EKG prior to Surgery: Not Recommneded. Referral clearance needed: None. Assessment & Plan (04/30/2021 12:38 PM CDT): Overall Condition Chronic Condition: Uncontrolled and New Diagnosis. Treatment: New Medication: Start Phentermine. and Recommended Therapeutic Lifestyle Modification Follow up in 3 months History of 12/17/2020 Overview (12/17/2020): G1 40wk infant weighed 9#, episiotomy G2: 40wk progressed to complete dilation, tried to push, NRFHTs, infant weighed 6lb, 35wks based on peds assessment Chronic migraine 01/20/2012 Assessment & Plan (04/16/2021 1:21 PM CDT): Overall Condition Chronic Condition: Uncontrolled. Treatment: New Medication: Start Propranolol for migraine prophalexis. Follow up in 3 months Immunizations Immunization Administration Dates Next Due Influenza, Unspecified 05/08/2022(Deferred: Elizabeth ent Refused) Social History Tobacco Use Types Packs/Day Years Used Date Smoking Tobacco: Every Day Cigarettes 0.8 5 Smokeless Tobacco: Current Tobacco Cessation:Ready to Q uit: Not Asked; Counseling Given: Not Answered Alcohol Use Standard Drinks/Week Comments Not Currently 0 (1 standard drink = 0.6 oz pur e alcohol) AUDIT-C Answer Date Recorded Q1: How often do you have a drink containing alc ohol? Never 10/26/2020 Average Number of Drinks Not on file 021 Q3: How often do you have si x or more drinks on one occasion? Never 10/26/2020 PHQ-2 Answer Date Recorded PHQ-2 Total Score (If total score is 3 or more points, staff should administer the PHQ-9) 0 07/23/2021 Comments No Sex and Gender Information Value Date Recorded Sex Assigned at Not on file Legal Sex Female 7:53 PM SCHOOL COOK Gender Identity Female 10/23/2020 10:30 AM SCHOOL COOK Sexual Orientation Straight 10/23/2020 10 :30 AM SCHOOL COOK Last Filed Vital Signs Vital Sign Reading Time Taken Comments Blood Pressure 116/78 05/08/2022 10:37 AM CDT Pulse 75 05/08/2022 10:37 AM CDT Temperature 36.7 C (98.1 F) 05/08/2022 10:37 AM CDT Respiratory Rate 18 05/08/2022 10:37 AM CDT Oxygen Saturation 99% 05/08/2022 10:37 AM CDT Inhaled Oxygen Concentration - - Weight 117.5 kg (259 lb) 06/19/2022 2:34 PM CDT Height 160 cm (5' 3 ) 06/19/2022 2:34 PM CDT Body Mass Index 45.88 06/19/2022 2:34 PM CDT Plan of Treatment Not on file Procedures Procedure Name Priority Date/Time Associated Diagnosis Comments THINPREP IMAGING PAP REFLEX HPV MRNA E6/E7 Routine 10/31/2017 11:16 AM SCHOOL COOK from Last 3 Months or Most Recently Relevant to Health Maintenance Results * ThinPrep Imaging Pap Reflex HPV mRNA E6/E7 (10/31/2017 11:16 AM SCHOOL COOK) CLINICAL INFORMATION [facility] HISTORICAL RESULTS Comment:Information not prov ided LMP: MIRENA [facility] HISTORICAL RESULTS PREV. PAP: [facility] HISTORICAL RESULTS Comment:NORMAL PREV. BX: [facility] HISTORICAL RESULTS Comment:INFORMATION NOT PROV IDED SOURCE: [facility] HISTORICAL RESULTS Comment:Cervix, Endocervix STATEMENT OF ADEQUACY: [facility] HISTORICAL RESULTS Comment:Satisfactory for thalia luation. Endocervical/transformation zone component present. INTERPRETATION/RESU LT: [facility] HISTORICAL RESULTS Comment:Negative for intraep ithelial lesion or malignancy. COMMENT: [facility] HISTORICAL RESULTS Comment:This Pap test has be en evaluated with computer assisted technology. CHILD LIFE SPECIALIST: [facility] HISTORICAL RESULTS Comment:MLO, CT(ASCP) CT scr eening location: [facility] [place] [address] [place] [address] 10/31/2017 11:1 6 AM SCHOOL COOK 11/06/2017 1:05 PM SCHOOL COOK Narrative [facility] HISTORICAL RESULTS - 11/06/2017 12:34 PM SCHOOL COOK 0 PERFORMING LAB: [facility] [address] [facility] [id number] Murphy Ramirez MD us Latoya Dawson MD LAB PATHOLOGY ORDERABLES Fin al Result [facility] HISTORICAL RESULTS from Last 3 Months or Most Recently Relevant to Health Maintenance Insurance [facility] Member Subscriber Plan / Payer (Ef fective 2019-Present) Name:Adenike Parry Jamel Relation to Subscriber:Self Name:Adenike Parry Payer ID:[id number] (NAIC) Group ID:Not on file Type:MEDICAID RISK OTHER Address: [address] [place], [place] [id number] [place] [address] [facility] [place] [place] [address] [facility] Care Teams Geophysics Teacher Relationship Specialty Start Date End Date Arleen Vu MD [address] [place] [address] [place] [address] PCP - General Family Medicine 01/10/23
--- OUTSIDE RECORDS SUMMARY | 2024-11-24 13:01 | XMS_ITS | Clinical Summary ---
Author Organization [place] [id number] [facility] Address [address] [place] [address] Care Team Providers Care Foundry Molder Name Role Phone Arleen Vu MD Primary [...] 08/14/2021 Assessment & Plan (08/14/2021 8:44 AM FAGOTING MACHINE OPERATOR): Overall Condition Chronic Condition: Uncontrolled. Treatment: New Medication: oral tablets and creams prescribed as below. Follow up in 1 month Paresthesia of hand, bilateral 07/24/2021 Assessment & Plan (07/24/2021 9:16 AM FAGOTING MACHINE OPERATOR): Acute with a reported past history of [...] 06/11/2021 Assessment & Plan (08/14/2021 8:45 AM FAGOTING MACHINE OPERATOR): Overall Condition Chronic Condition: Uncontrolled. Treatment: Recommended [...] Due Influenza, Unspecified 05/08/2022(Deferred: Elizabeth ent Refused) Surgical History Surgery Date Site/Laterality Comments EAR SURGERY 09/01/2009 - 08/31/2010 Left eardrum repair US ABDOMEN COMPLETE W LIVER DOPPLER (C) 08/24/2018 Right SECTION x 2 w epidurals WISDOM TOOTH EXTRACTION CARPAL TUNNEL RELEASE 10/18/2021 Left Medical History Medical History Date Comments Lower back pain Knee pain left Headache Miscarriage Covid 08/2021 Pt also had covi d in early 2019. Not hospitalized either time. No residual problems. Depression Obesity GERD (gastroesophageal reflux disease) N/a Migraines N/A Family History Medical History Relation Name Comments Hypertension Father Adrian Parry Obesity Father Adrian Parry Hypertension Mother Yessica Del Rosario Obesity Mother Yessica Del Rosario GI problems Sister 1 Obesity Sister 2 Sarah Mims Obesity Sister 3 Jeannette Parry Ovarian cancer Neg Hx Relation Name Status Comments Father Adrian Parry Alive Mother Yessica Del Rosario Alive Sister 1 Alive Sister 2 Sarah Robisono Sister 3 Jeannette Parry Social History Tobacco Use Types Packs/Day Years [...] on file Legal Sex Female 7:53 PM FAGOTING MACHINE OPERATOR Gender Identity Female 10/23/2020 10:30 AM FAGOTING MACHINE OPERATOR Sexual Orientation Straight 10/23/2020 10 :30 AM FAGOTING MACHINE OPERATOR Obstetrics History Para Term AB IAB SAB Ectopic Multiple Livin g Live Births 3 2 2 2 2 Date Outcome GA Total Labor Labor/2nd/3rd Weight Sex Type Anes PTL Marilyn A1 A5 Name Clin Term Term Last Filed Vital Signs Vital Sign Reading [...] 06/19/2022 2:34 PM CDT Plan of Treatment Health Maintenance Due Date Last Done Comments Hepatitis C Screening 1989 DTaP/Tdap/Td Vaccine (1 - Tdap) 2000 Hepatitis B Screening 2007 Pneumococcal vaccine <65 (1 of 2 - PCV) 2008 Cervical Cancer Screening 10/31/2018 10/31/2017 Depression Screening 07/23/2022 07/23/2021, 04/30/2021, 04/16/2021, Additional history exists Regular Well Visit/Exam 18-64 05/08/2023 05/08/2022, 04/16/2021, 11/14/2020 Influenza Vaccine (#1) 2024 HPV Vaccines Aged Out No longer eligi ble based on patient's age to complete this topic Varicella Vaccines Discontinued Procedures Procedure Name Priority Date/Time Associated Diagnosis Comments THINPREP IMAGING PAP REFLEX HPV MRNA E6/E7 Routine 10/31/2017 11:16 AM FAGOTING MACHINE OPERATOR from Last 3 Months or Most Recently Relevant to Health Maintenance Results * ThinPrep Imaging Pap Reflex HPV mRNA E6/E7 (10/31/2017 11:16 AM FAGOTING MACHINE OPERATOR) CLINICAL INFORMATION [facility] HISTORICAL RESULTS Comment:Information not prov ided LMP: MIRENA [facility] HISTORICAL RESULTS PREV. PAP: [facility] HISTORICAL RESULTS Comment:NORMAL PREV. BX: [facility] HISTORICAL RESULTS Comment:INFORMATION NOT PROV IDED SOURCE: [facility] HISTORICAL RESULTS Comment:Cervix, Endocervix STATEMENT OF ADEQUACY: [facility] HISTORICAL RESULTS Comment:Satisfactory for thalia luation. Endocervical/transformation zone component present. INTERPRETATION/RESU LT: [facility] HISTORICAL RESULTS Comment:Negative for intraep ithelial lesion or malignancy. COMMENT: [facility] HISTORICAL RESULTS Comment:This Pap test has be en evaluated with computer assisted technology. COMMERCIAL LINES SALES EXECUTIVE: [facility] HISTORICAL RESULTS Comment:MLO, CT(ASCP) CT scr eening location: [place] [address] [place] [address] 10/31/2017 11:1 6 AM FAGOTING MACHINE OPERATOR 11/06/2017 1:05 PM FAGOTING MACHINE OPERATOR Narrative [facility] HISTORICAL RESULTS - 11/06/2017 12:34 PM FAGOTING MACHINE OPERATOR 0 PERFORMING LAB: , [facility] [address] [facility] [phone] Murphy Ramirez MD us Latoya Dawson MD LAB PATHOLOGY ORDERABLES Fin al Result [facility] HISTORICAL RESULTS from Last 3 Months or Most Recently Relevant to Health Maintenance Insurance [facility] Care Teams Foundry Molder Relationship Specialty Start Date End Date Arleen Vu MD [address] [place] [address] [address] PCP - General Family Medicine 01/10/23
--- OUTSIDE RECORDS SUMMARY | 2024-11-24 13:01 | XMS_ITS | Clinical Summary ---
Author Organization [facility] Address [address] [place] [place] [address] Care Team Providers Care Neck Skewer Name Role Phone Joshua Peace MD Primary Care Provider [phone] Source Comments [facility],non-owned Affiliates and Associated Physician Practices is amultiple site organization consisting of ambulatory clinics and hospital sitesin [place], [place], [place] and [place]. This disclosure is being madepursuant to the Care Everywhere program and may not contain all information available regarding this patient. Last updated 18.[facility] Allergies Active Allergy Reactions Criticality Noted Date Comments Coconut Flavor Rash Medium 11/08/2021 Medications * Be aware that medications may not be up to date on this document. Alwaysverify current medications with the patient. Medication Sig Dispensed Refills Start Date End Date Status albuterol HFA (PROVENTIL;VENTOLIN ;PROAIR) 108 (90 BASE) MCG/ACT inhaler Inhale 2 Puffs by mouth every 4 hours as needed for Shortness of Breath or Wheezing. 1 Inhaler 1 10/13/2014 Active Additional Information Patient not taking.Reported on 01/24/2022 ondansetron (ZOFRAN) 4 MG tablet Take 1 Tab by mouth every 4 hours as needed for Nausea/Vomiting 10 Tab 0 03/07/2015 Active Additional Information Patient not taking.Reported on 01/24/2022 phentermine (ADIPEX-P) 37.5 MG tablet 09/18/2021 Active SUMAtriptan (IMITREX) 50 MG tablet 09/17/2021 Active ketoconazole (NIZORAL) 2 % cream APPLY TOPICALLY TO THE AFFECTED AREA TWICE DAILY 09/17/2021 Active triamcinolone acetonide (KENALOG) 0.1 % cream APPLY TOPICALLY TO THE AFFECTED AREA 1 TO 2 TIMES DAILY NEEDED 09/17/2021 Active EPINEPHrine (EPIPEN) 0.3 MG/0.3ML auto-injector pen INJECT 0.3 ML INTO THE MUSCLE INSTRUCTED NEEDED FOR ANAPHYLAXIS CALL 911 AFTER USE 06/11/2021 Active Multiple Vitamins-Minerals (CENTRUM SILVER) TABS Take 1 tablet by mouth daily with food Active calcium citrate TABS tablet Take 400 mg by mouth once daily Active VITAMIN D PO Take by mouth once daily Active Family History Medical History Relation Name Comments Cancer Paternal Grandmother Relation Name Status Comments Paternal Grandmother Social History Tobacco Use Types Packs/Day Years Used Date Smoking Tobacco: Every Day Cigarettes 0.5 6 Smokeless Tobacco: Never Tobacco Cessation:Ready to Q uit: Yes; Counseling Given: Yes Alcohol Use Standard Drinks/Week Comments No 0 (1 standard drink = 0.6 oz pur e alcohol) Sex and Gender Information Value Date Recorded Sex Assigned at Not on file Gender Identity Not on file Sexual Orientation Not on file Last Filed Vital Signs Vital Sign Reading Time Taken Comments Blood Pressure 138/88 12/07/2021 1:00 PM CDT Pulse 77 12/07/2021 1:00 PM CDT Temperature 36.6 C (97.8 F) 12/07/2021 1:00 PM CDT Respiratory Rate 16 12/07/2021 1:00 PM CDT Oxygen Saturation 99% 12/07/2021 1:00 PM CDT Inhaled Oxygen Concentration - - Weight 118.8 kg (262 lb) 01/24/2022 10:00 AM CDT per pt Height 159.8 cm (5' 2.91 ) 01/24/2022 10:00 AM C DT Body Mass Index 46.54 01/24/2022 10:00 AM CDT Plan of Treatment Health Maintenance Due Date Last Done Comments PAP SMEAR 1989 HIV SCREENING 2004 HEPATITIS C SCREENING 03/02/2007 DTAP/TDAP/TD VACCINES (1 - Tdap) 2008 HEPATITIS B VACCINE (1 of 3 - 19+ 3-dose series) 2008 PNEUMOCOCCAL VACCINE (1 of 2 - PCV) 2008 COVID-19 VACCINE (2023-2 5 season) 2024 INFLUENZA VACCINE (#1) 2024 DEPRESSION SCREENING 09/01/2024 ZOSTER VACCINE (1 of 2) 2039 HIB VACCINE Aged Out No longer eligi ble based on patient's age to complete this topic HPV VACCINE Aged Out No longer eligi ble based on patient's age to complete this topic MENINGOCOCCAL (Group B) VACC INE SHARED DECISION-MAKING Aged Out No longer eligibl e based on patient's age to complete this topic MENINGOCOCCAL GROUPS A/C/Y/W VACCINE Aged Out No longer eligible b ased on patient's age to complete this topic Insurance Payer Benefit Plan / Group Subscriber ID Effective Dates Phone Address Type WC PA[employer]OR GENERIC WC GENERIC [id number] Effective for all dates [address] [address] [place] [address] Worker's Comp [facility] MEDICA[facility] [id number] Effective for all dates ATTN CLAIMS DEPARTMENT [address] [place] [address] Medicaid Managed Care [facility] [place] [facility] [employer] [place] [id number] Effective for all dates ATTN CLAIMS DEPARTMENT [address] [place] [address] Medicaid Managed Care [facility] [employer] [facility] [place] [employer] [employer] [employer] [place] [id number] Effective for all dates ATTN CLAIMS DEPARTMENT [address] [place] [address] Medicaid Managed Care [facility] [place] [facility] [employer] [place] [id number] Effective for all dates ATTN CLAIMS DEPARTMENT [address] [place] [address] Medicaid Managed Care [facility] [place] [facility] [id number] Effective for all dates ATTN CLAIMS DEPARTMENT [address] [place] [address] Medicaid Managed Care [facility] [place] [facility] [place] [id number] Effective for all dates ATTN CLAIMS DEPARTMENT [address] [facility] [address] [place] [address] Medicaid Managed Care [facility] [place] [facility] [employer] [place] [id number] Effective for all dates ATTN CLAIMS DEPARTMENT [address] [facility] [address] [place] [address] Medicaid Managed Care [facility] [place] [facility] [place] [id number] Effective for all dates ATTN CLAIMS DEPARTMENT [address] [facility] [address] [place] [address] Medicaid Managed Care [facility] MEDICAID [id number] Effective for all dates ATTN CLAIMS DEPARTMENT 1 [facility] [address] [place] [address] Medicaid Managed Care [facility] [place] [facility] [employer] [place] [id number] Effective for all dates [address] [place] [address] Medicaid Managed Care JENNIFER PARRY Personal/Family Other [address] [place] [address] JENNIFER PARRY Personal/Family Other [address] [place] [address] JENNIFER PARRY Personal/Family Other [address] [place] [address] JENNIFER PARRY Personal/Family Other [address] [address] Care Teams Neck Skewer Relationship Specialty Start Date End Date Joshua Peace MD [address] [address] PCP - General 11/05/21
--- OUTSIDE RECORDS SUMMARY | 2024-11-24 13:12 | XMS_ITS | Data Portability ---
Author Organization [facility], Main Office Address [address] [place] [address] Care Team Providers Care Coordinate Measuring Machine Technician Name Role Phone TOD GOLD Primary Care Provider Assessment No assessment recorded. Plan of Treatment Reminders Order Date Submit Date Provider Last Modified By Organization Details Last Modified Time Details Appointments None recorded. Lab None recorded. Referral endocrinol ogy referral - DST of 3 ug/dl with low ACTH and needs CT adrenals may need cortisol ericka; urinary and salivary tests pending drawn in April 082022 023 MICHAEL Owens MD, [address], [place], [address], 3 12:35:[address]/dietiti an referral - Please call the patient to make an appt. Thank you [address], [address] [place], [address], 3 18:17:20 orthopedic surgeon referral 2022 023 [email or web address] Cabrera Jenkins MD, [address] [facility] , [address], [place], [address], 3 15:56:[address] referral - ADHD evaluation Please call pt to schedule appt. Thank you 2022 023 [email or web address] Lucius Murillo MD, [address], [address], [place], [address], 11:26:39 Procedures None recorded. Surgeries None recorded. Imaging None recorded. Medication Orders Mounjaro 2.5 mg/0.5 mL subcutaneo us pen injector 2022 023 [email or web address] [id number], [address] [facility], [place], [place], [id number], 11:03:01 Patient TargetsNo targets recorded. Patient InstructionsNo instructions recorded. Reason for Referral Psychiatrist Referral for Po or focus ADHD evaluation Please call pt to schedule appt. Thank you Referring Physician: Tod Gold [facility], Encounter Date: 11/08/2022 Orthopedic Surgeon Referral for Injury of finger Referring Physician: Arleen Vu [facility], Encounter Date: 01/09/2023 Maintenance Mechanic Engine/dietitian Refer ral for Body mass index 40+ - severely obese Please call the patient to make an appt. Thank you Referring Physician: Tod Gold [facility], Encounter Date: 01/14/2023 Endocrinology Referral for H ypercortisolism DST of 3 ug/dl with low ACTH and needs CT adrenals may need cortisol ericka; urinary and salivary tests pending drawn in April Referring Physician: Alicia Nichols, Endocrinology, Encounter Date: 04/15/2023 Results Created Date Observation Date Name Description Value Unit Range Abnormal Flag Note LastModifiedBy Organization Detail LastModifiedTime 11/14/1911/13/2022 US, thyro id No observ ation record ed. [address] [place] [address], [address], 11/18/2022 09:25:59 11/15/1911/13/2022 US, thyro id No observ ation record ed. [address], [address], 11/18/2022 09:27:59 12/07/1912/05/2022 CT, lumba r spine , w/o contr ast No observ ation record ed. [address], [place], [address], 12/09/2022 20:05:18 Result Notes None recorded. Problems Name Problem SNOMED Code Status Onset Date Resolution Date Notes Provider Name and Address Organization Details Recorded Time Morbid obesity 416066143 Active 2021 Not Available [facility] 3 01:01:09 Hirsutism 007753612 Active 2021 Not Available [facility] 3 01:01:09 Obesity 158115901 Active 2021 Not Available [facility] 3 01:01:09 Hyperparathyr oidism 28013711 Active 2021 Not Available [facility] 3 01:01:09 Hypercalciuri a 66582069 Active 2021 Not Available [facility] 01:[facility]09 Irregular periods 79840993 Active 2021 Not Available [facility] 01:01:10 Weight gain 9087175 Active 2021 Not Available [facility] 3 01:01:10 Prediabetes 017781807 Active 2022 CRISTIAN Polanco [address], [address], [place], [address] , [facility] 3 11:07:38 Migraine 84611170 Active 2022 CRISTIAN Polanco [address], [address], [place], [address] , [facility] 3 11:07:55 Intertrigo 35619759 Active 2022 CRISTIAN Polanco [address], [address], [place], [address] , [facility] 3 11:08:21 Nicotine dependence 46772989 Active 2022 CRISTIAN Polanco [address], [place], [address] , [facility] 3 11:11:27 Poor focus 547581493 Active 2022 CRISTIAN Polanco [address] [facility], [address] [address], [place], [address] , [facility] 3 11:12:24 Abnormal cortisol 028817822 Active 2022 Alicia Nichols MD [address] [facility], [address], [address] , [facility] 3 11:33:18 Injury of finger 11221281 Active 2022 Arleen Vu MD [address] [facility], [address] [address], [place], [address] , [facility] 3 15:58:22 Abnormal weight 90292650 Active 2022 Vika Lubin, BR[facility] ROLLER null, [facility] 3 09:46:35 Hypercortisol ism 29958471 Active 2022 Alicia Nichols MD [address] [facility], [address], [address] , [facility] 3 11:17:54 Problem Notes None recorded. Procedures Surgical History Date Name Laterality Status Provider Name and Address Organization Details Recorded Time 2 Carpal tunnel surgery completed Not Available [facility] 10/31/2022 00:59:26 delivery completed Not Available [facility] 10/31/2022 00:59:26 Imaging Results Imaging Date Name Status LastModified by Organiz ation Details LastModified Time 11/13/2022 US, thyroid completed [email or web address] [facility] [address] [facility] [address] [place] [address], [address], 11/18/2022 09:25:59 11/13/2022 US, thyroid completed [email or web address] [facility] [address], [address], 11/18/2022 09:27:59 12/05/2022 CT, lumbar spine, w/o contrast completed [address], [place], [address], 12/09/2022 20:05:18 Procedure Notes None recorded. Medical Equipment None Reported. Allergies Allergen ID Allergen Name Allergen Category Reaction Reaction Severity Criticality Documentation Date Start Date Code Code System Note Provider Name and Address Organization Details Recorded Time 66418 coconut extract food,medi cation Not available Not available Not available 11/08/2022 31313 48 RxNorm HIVES EVETTE [place], [place] - [facility] 10:57:49 Medications Name Sig Start Date Stop Date Status Note LastModified by Organization Details LastModified Time Prescript ion - New 04/15 completed [facility] Not Available Not Available Not Available cyclobenz aprine 10 mg tablet TAKE 1 TABLET BY MOUTH THREE TIMES DAILY NEEDED FOR MUSCLE SPASM OR PAIN 04/15 completed Not Available Not Available Not Available doxycycli ne hyclate 100 mg capsule TAKE 1 CAPSULE BY MOUTH DAILY 03/12 completed Not Available Not Available Not Available azithromy froylan 250 mg tablet TK 2 TS PO ON DAY 1, THEN TK 1 T PO D FOR 4 DAYS 03/12 completed Not Available Not Available Not Available fluconazo le 150 mg tablet 03/12 completed Not Available Not Available Not Available sumatript an 100 mg tablet active Not Available Not Available Not Available hydrocodo ne 5 mg-acetam inophen 325 mg tablet TAKE 1 TABLET BY MOUTH EVERY 4 HOURS NEEDED FOR PAIN 03/12 completed Not Available Not Available Not Available ondansetr on HCl 4 mg tablet TAKE 1 TABLET BY MOUTH EVERY 8 HOURS NEEDED FOR NAUSEA OR VOMITING active Not Available Not Available No t Available prednison e 20 mg tablet 10/21 completed Not Available Not Available Not Available sumatript an 50 mg tablet TAKE ONE TABLET BY MOUTH NEEDED FOR MIGRAINE . MAY REPEAT 1 TABLET ONCE IN 2 HOURS IF NO RELIEF. MAX OF 2 TABLETS IN 24 HOURS. 04/15 completed Not Available Not Available Not Available topiramat e 25 mg tablet 12/10 completed Not Available Not Available Not Available phentermi ne 37.5 mg tablet TAKE 1 TABLET BY MOUTH DAILY BEFORE BREAKFAS T 03/12 completed Not Available Not Available Not Available triamcino lone acetonide 0.1 % topical cream APPLY TOPICALL Y TO THE AFFECTED AREA 1 TO 2 TIMES DAILY NEEDED active Not Available Not Available No t Available nortripty line 25 mg capsule 03/12 completed Not Available Not Available Not Available propranol ol 40 mg tablet 03/12 completed Not Available Not Available Not Available amitripty line 25 mg tablet TAKE 1 TABLET BY MOUTH EVERY DAY AT BEDTIME 04/15 completed Not Available Not Available Not Available dexametha sone 1 mg tablet take dexa tablet at 10 pm night before 8 am cortisol 04/15 completed Not Available Not Available Not Available rizatript an 10 mg disintegr ating tablet 03/12 completed Not Available Not Available Not Available misoprost ol 200 mcg tablet TAKE 2 TABLETS BY MOUTH 24 HOURS PRIOR TO PROCEDUR E 03/12 completed Not Available Not Available Not Available docusate sodium 100 mg capsule TAKE 1 CAPSULE BY MOUTH TWICE DAILY 04/15 completed Not Available Not Available Not Available codeine 10 mg-guaife nesin 100 mg/5 mL oral liquid TAKE 5 TO 10 ML BY MOUTH EVERY 4 HOURS NEEDED FOR COUGH 10/21 completed Not Available Not Available Not Available azelastin e 137 mcg (0.1 %) nasal spray USE 1 SPRAY IN EACH NOSTRIL EVERY 12 HOURS 03/12 completed Not Available Not Available Not Available epinephri ne 0.3 mg/0.3 mL injection , auto-inje ctor INJECT 0.3 ML INTO THE MUSCLE INSTRUCT ED NEEDED FOR ANAPHYLA XIS CALL 911 AFTER USE active Not Available Not Available No t Available methylpre dnisolone 4 mg tablets in a dose pack TAKE 1 TABLET BY MOUTH DAILY 04/15 completed Not Available Not Available Not Available albuterol sulfate HFA 90 mcg/actua tion aerosol inhaler INHALE 1 TO 2 PUFFS BY MOUTH EVERY 4 HOURS NEEDED FOR WHEEZING OR SHORTNES S OF BREATH 11/08 completed Not Available Not Available Not Available ketoconaz ole 2 % topical cream APPLY TOPICALL Y TO THE AFFECTED AREA TWICE DAILY active Not Available Not Available No t Available cefdinir 300 mg capsule TAKE ONE CAPSULE BY MOUTH TWICE DAILY FOR 7 DAYS 03/12 completed Not Available Not Available Not Available spironola ctone 50 mg tablet Take 2 tablets every day by oral route for 30 days. active Not Available Not Available No t Available amoxicill in 875 mg-potass ium clavulana te 125 mg tablet TAKE 1 TABLET BY MOUTH TWICE DAILY FOR 10 DAYS 10/21 completed Not Available Not Available Not Available oxycodone 5 mg tablet TAKE 1-2 TABLETS BY MOUTH EVERY 4 HOURS NEEDED FOR PAIN 04/15 completed Not Available Not Available Not Available neomycin- polymyxin -hydrocor t 3.5 mg-10,000 unit/mL-1 % ear drops,anjali p ADMINIST ER 2 DROPS INTO BOTH EARS FOUR TIMES DAILY FOR 7 DAYS 03/12 completed Not Available Not Available Not Available escitalop shahnaz 10 mg tablet 03/12 completed Not Available Not Available Not Available escitalop shahnaz 20 mg tablet 03/12 completed Not Available Not Available Not Available topiramat e 50 mg tablet twice daily 03/12 completed Not Available Not Available Not Available varenicli ne tartrate 1 mg tablet 03/12 completed Not Available Not Available Not Available varenicli ne tartrate 0.5 mg tablet 03/12 completed Not Available Not Available Not Available varenicli ne tartrate 0.5 mg (11)-1 mg (42) tablets in a dose pack FOLLOW PACKAGE DIRECTIO NS active Not Available Not Available No t Available Victoza 2-Dakota 0.6 mg/0.1 mL (18 mg/3 mL) subcutane ous pen injector 01/14 completed Not Available Not Available Not Available Saxenda 3 mg/0.5 mL (18 mg/3 mL) subcutane ous pen injector ADMINIST ER 2.4 MG UNDER THE SKIN EVERY DAY 10/21 completed Not Available Not Available Not Available TRUEplus Pen Needle 32 gauge x /32 USE ONCE DAILY DIRECTED active Not Available Not Available No t Available Wegovy 0.25 mg/0.5 mL subcutane ous pen injector Inject 0.25 mg every week by subcutan eous route for 28 days. active Not Available Not Available No t Available Mounjaro 7.5 mg/0.5 mL subcutane ous pen injector ADMINIST ER 0.5 ML UNDER THE SKIN EVERY WEEK active Not Available Not Available No t Available Mounjaro 2.5 mg/0.5 mL subcutane ous pen injector Inject 2.5mg every week by subcutan eous route 04/15 completed Not Available Not Available Not Available Vitals Date Recorded Body height Body mass index (BMI) Body weight Body temperature Heart rate Oxygen saturation Oxygen saturation in Arterial blood by Pulse oximetry Systolic blood pressure Diastolic blood pressure Provider Name and Address Organization Details Last Updated DateTime 3 160.02 cm 48.5 kg/m2 975077. 31 g 97.9 [degF] 66 /min 98 % 98 % 116 mm[Hg] 70 mm[Hg] Joyce Zuniga MA [facility] [employer] [facility] 3 10:57:18 Date Recorded Body height Provider Name an d Address Organization Details Last Updated DateTime 11/27/2022 160.02 cm Marta Quintero CMA [facility] [employer] [facility] 11/27/2022 09:18:07 Date Recorded Body height Body temperature Heart rate Body mass index (BMI) Body weight Systolic blood pressure Diastolic blood pressure Provider Name and Address Organization Details Last Updated DateTime 3 160.02 cm 98.4 [degF] 89 /min 48.9 kg/m2 195586. 49 g 134 mm[Hg] 76 mm[Hg] Raza Mathis RN [facility] [employer] [facility] 3 15:45:13 Date Recorded Body height Body mass index (BMI) Body weight Body temperature Oxygen saturation Oxygen saturation in Arterial blood by Pulse oximetry Heart rate Systolic blood pressure Diastolic blood pressure Provider Name and Address Organization Details Last Updated DateTime 3 160.02 cm 48.9 kg/m2 924733. 49 g 98.2 [degF] 98 % 98 % 76 /min 138 mm[Hg] 72 mm[Hg] Vika Lubin CMA [facility] [employer] [facility] 3 09:48:08 Date Recorded Body height Body mass index (BMI) Body weight Body temperature Respiratory rate Heart rate Systolic blood pressure Diastolic blood pressure Provider Name and Address Organization Details Last Updated DateTime 3 160.02 cm 44.7 kg/m2 302995. 71 g 97.8 [degF] 14 /min 70 /min 122 mm[Hg] 87 mm[Hg] Wandy Kaplan RN [facility] 11:01:12 Social History Question Answer Notes LastModified by Organizat ion Details LastModified Time Tobacco Smoking Status Current Every Day Smoker Cande isidro [facility] 11/08/2022 10:44:24 What Is Your Level Of Alcohol Consumption? None [id number] Information not available 10/31/2022 What Is Your Level Of Caffeine Consumption? None [id number] Information not available 10/31/2022 What Type Of Diet Are You Following? 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 Single [id number] Information not available 10/31/2022 Do You Use Your Seat Belt Or Car Seat Routinely? Yes [email or web address] Information not available 01/09/2023 Do You Participate In Social Media? Yes [email or web address] Information not available 01/09/2023 Do You Feel Stressed (tense, Restless, Nervous, Or Anxious, Or Unable To Sleep At Night)? [id number] [id number] Information not available 01/09/2023 Do You Use Any Illicit Or Recreational Drugs? No [email or web address] Information not available 11/08/2022 Has Tobacco Cessation Counseling Been Provided? No [email or web address] Information not available 11/08/2022 Do You Have Any Dietary Restrictions? No LOW CARBS [email or web address] Information not available 11/08/2022 Sex: Female Functional Status Question Answer Note LastModified by Organization D etails LastModified Time What is your exercise level? Moderate [email or web address] Information not available 11/08/2022 Mental Status None recorded. Family History Relationship Description Onset Age of this Age Resolved Age Notes LastModified by Organization Details LastModified Time Paternal Grandmother Diabetes mellitus [email or web address] Not available 2022 10:58:12 Father Hypertensive disorder [email or web address] Not available 2022 10:58:32 Mother Hypertensive disorder Not available 2022 10:58:32 Maternal Aunt Family history of malignant neoplasm Not available 2022 10:58:51 Medical History Condition Response OBESITY Y HAVE YOU BEEN HOSPITALIZED OR SEEN IN [facility] IN THE PAST YEAR ? Y Gynecological History Statement/Question Response Menses Monthly Y Date of LMP 11/22/2022 Obstetrics History GPAL:G 2 P 0 0 0 2 Type Value Living 2 Total 2 Past Encounters Encounter ID Performer Location Encounter Start Date Encounter Closed Date Diagnosis/Indication Diagnosis SNOMED-CT Code Diagnosis ICD10 Code Diagnosis Note [id number] [facility] [place] [facility] [address] [place] [address] 12/10/2021 00:00:00 12/10/2021 17:46:02 [id number] [facility] [place] [address] [place] [address] 03/12/2022 00:00:00 03/12/2022 11:33:12 [id number] [facility] [place] [address] [place] [address] 06/10/2022 00:00:00 06/10/2022 22:02:32 [id number] [facility] [place] [address] [place] [address] 10/21/2022 00:00:00 10/21/2022 16:50:51 [id number] CRISTIAN Polanco [facility] [address] [facility] [address] [address] [address] [place] [address] 11/08/2022 10:42:36 11/08/2022 14:07:46 Prediabetes 727756536 R73.03 Will get labs from previous PCP. Not on any medication s.She is also followed by endocrinol ogy. Migraine 99517606 G43.90 9 Takes sumatripta n when needed and zofran to help with nausea.Fol lowed by neurology. Intertrigo 83203508 L30. 4 Will use Triamcinol one and ketoconazo le when needed. Morbid obesity 165812871 E66.[address] Nichols. She has been on victoza in the past but no longer covered due to insurance. Has considered weight loss surgery but unable to quit smoking. Nicotine dependence 5629 4008 F17.200 1ppd since age 14 (states she stopped for a 3 year period when she was ). Poor focus 971865222 H52 .7 ADHD vs. seasonal depression .States she is having trouble focusing and getting tasks done at work and at home. She states she was never diagnosed with ADHD when she was younger but she did not get diagnosis. Will send referral to psychiatry to get evaluated. [id number] CRISTIAN Polanco [facility] Primary Care [facility] [address] [place] [address] 11/27/2022 09:15:59 11/27/2022 12:01:24 [id number] Arleen Vu MD [facility] Primary Care [facility] [address] [facility] [address] [place] [address] 01/09/2023 15:37:48 01/09/2023 16:39:41 Injury of finger 26437144 S69.92XA [id number] CRISTIAN Polanco [facility] Primary Care [facility] [address] [facility] [address] [place] [address] 01/14/2023 09:43:21 01/14/2023 12:46:04 Body mass index 40+ - severely obese 322049001 Z68.42 Goal is to lose about 100lbs.She has tried phentermin e, topamax, wellbutrin and victoza. She just stopped victoza in September (due to insurance) , states she was on it for 3-4 months and lost only a small amount of weight. She has been counting calories and trying to low carb/low sugar. She states she is remodeling a house so she is doing a lot of work around the house and yard. States she plays and walks regularly with her kids.We discussed her diet and and increasing intentiona l exercise/w alking.Nick l see if we can find nutritioni st in her network. e would like to to see if injectable s covered, advised it will need PA and cannot guarantee will be covered by insurance. Will send script for amauri, if not covered will do script for flako. 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 Her ACTH was 8 pg/ML - recommende d patient undergo CT of adrenals for further workup. Will refer patient to [place] [facility] due to my resignatio n. She has no evidence of hypertensi on, hyperglyce phil at this time. She does have BMI over 40 and does have hirsutism so need full panel to differenti ate PCOS from hypercorti solic state. Spent up to 15 minutes preparing to see the patient (eg, review of tests), obtaining and/or reviewing separately obtained history, performing a medically appropriat e examinatio n and evaluation , counseling and educating the patient, ordering medication s, tests, along with documentin g clinical informatio n in the electronic health record, independen tly interpreti ng results and communicat ing results to the patient. Patient can be followed by PCP - she/he is aware of my resignatio n and last day of June 13. If needed his/her PCP can refer patient to another endocrinol ogist in the area. All questions /concerns answered and refills necessary at visit today. Health Concerns Section Related Observation LastModified by Organization Detai ls LastModified Time None Recorded Concern Status LastModified by Organization Details LastModified Time None Recorded Advance Directives Directive None Recorded Payers Encounter Date Sequence Insurance Name Policy Number Policy Roque Covered Member ID Roque Member ID Guarantor Name 11/08/2022 1 [facility] - DOS ON OR AFTER 21 (MEDICAID REPLACEMENT - HMO) Adenike Parry [id number] Adenike Parry 11/27/2022 1 [facility] - DOS ON OR AFTER 21 (MEDICAID REPLACEMENT - HMO) Adenike Parry [id number] Adenike Parry 01/09/2023 1 [facility] - DOS ON OR AFTER 21 (MEDICAID REPLACEMENT - HMO) Adenike Parry [id number] Adenike Parry 01/14/2023 1 [facility] - DOS ON OR AFTER 21 (MEDICAID REPLACEMENT - HMO) Adenike Parry [id number] Adenike Parry 04/15/2023 1 [facility] - DOS ON OR AFTER 21 (MEDICAID REPLACEMENT - HMO) Adenike Parry [id number] Adenike Parry Notes Date Note Type Note Provider Name and Address Organization Details Recorded Time 11/08/2022 text/html Pt. here to amrita vásquez.Other specialists involved in care: Endocrinology, Neurologist (for headaches), EENT (chronic ear infections).She would like to be evaluated for ADHD. CRISTIAN Polanco [address] [employer], [place], [address], [address] 11/08/2022 11:28:47 01/09/2023 text/html Friday was movin g a cooler in a car, and cooler get stuck on the seatbelt and bounced back on her left 4th digit. Had immediate pain, swelling, and bruising. Was seen in UC, xray negative, put brace on it and sent her home. She has some pain with certain movements but otherwise no pain at rest. Some improvement in swelling and bruising, but her range of motion is limited at the knuckle and PIP joint. Arleen Vu MD [address] [employer], [place], [address], [address] 01/29/2023 08:03:28 01/14/2023 text/html Pt. here to disc uss weight loss. She states she has tried multiple diets and medications with no improvement in weight loss. CRISTIAN Polanco [address] [facility] [address] [employer], [place], [address], [address] 01/14/2023 10:14:47 04/15/2023 text/html 33 yo female com es in for follow up in management of fatigue found to have hypercortisolism (based on abnormal DST) last seen in Oct at that time we sent for full adrenal panel including DST labs from 11/21:TSH of 1.620 uIU/mlB12/folate normalacth not drawn by lab DST positive with dexa of 591 ug/mL and cortisol of 3 ug/dL a1c of 5.1% we ordered confirmatory testing for hypercortisolism on 12/14 and this was not completed by patient until 04/08 labs from 04/23:cortisol 9 ug/dL She has regular cycles overall. She has facial hair and hair thinning. Alicia Nichols MD [address] [place] [address], [facility] [address], [place], [address], [facility] 04/15/2023 12:47:54 OBGyn Episode No OBEpisode recorded.
[2024-11-24 14:09] VITALS: BP 126/70; PULSE 62; RESP 16; O2SAT 100
--- NOTE | 2024-11-24 15:48 | PC.NURSE ---
Pt. refused IV antibiotics stating her phone is and she needs to clam picker her kid from the bus stop. Dr. Hammer notified. Oral antibiotics sent to pt. preferred pharmacy.
[2024-11-24 15:49] VITALS: BP 115/79; PULSE 79; RESP 16; O2SAT 100
== END 2024-11-24 16:04 | disposition home or self-care (01) ==
PROVIDERS: Emergency Provider Student in an Organized Health Care Education/Training Program; PCP Nurse Practitioner Family
DX: N39.0 Urinary tract infection, site not specified (principal); N13.30 Unspecified hydronephrosis; R10.11 Right upper quadrant pain; F17.290 Nicotine dependence, other tobacco product, uncomplicated; Z79.85 Long-term (current) use of injectable non-insulin antidiabetic drugs; Z79.51 Long term (current) use of inhaled steroids
CPT/HCPCS: 36415; 74177; 76705; 80053; 81001; 81025; 83690; 85025; 96361; 96374; 96375; 99284; J2270; J2405; J7120; Q9967

== ENCOUNTER 2025-04-19 19:47 | Emergency (ER) | payer OTHER, SELFPAY ==
--- OUTSIDE RECORDS SUMMARY | 2023-07-15 02:49 | XMS_ITS | Continuity of Care Document ---
Author Organization [employer] [place] Address [address] [facility] [address] [place] [address] Phone Care Team Providers Care Spray Rig Operator Name Role Phone Zeyad Shields Unavailable Unavailable Procedures Procedure Date ELECTRONICS ASSEMBLER Acute Therapeutic Activities Neuromuscular Re-Ed Therapeutic Exercise [...] Pack PT Evaluation Moderate Complexity Neuromuscular Re-Ed ELECTRONICS ASSEMBLER Acute Therapeutic Activities Therapeutic Exercise Neuromuscular Re-Ed Therapeutic Activities Neuromuscular Re-Ed Therapeutic Exercise Manual Therapy Therapeutic Activities Neuromuscular Re-Ed Therapeutic Exercise Manual Therapy Therapeutic Activities Neuromuscular Re-Ed Manual Therapy Therapeutic Exercise Therapeutic Activities Neuromuscular Re-Ed Therapeutic Exercise Manual Therapy Therapeutic Activities Neuromuscular Re-Ed Therapeutic Exercise Manual Therapy Therapeutic Activities Neuromuscular Re-Ed Therapeutic Exercise Manual Therapy ELECTRONICS ASSEMBLER Acute Therapeutic Exercise Neuromuscular Re-Ed Manual Therapy Hot or Cold Pack ELECTRONICS ASSEMBLER Acute Therapeutic Activities Neuromuscular Re-Ed Therapeutic Exercise Manual Therapy Hot or Cold Pack Therapeutic Activities Therapeutic Exercise Neuromuscular Re-Ed Hot or Cold Pack Manual Therapy Ultrasound Therapeutic Activities Neuromuscular Re-Ed Therapeutic Exercise Hot or Cold Pack Manual Therapy Ultrasound Therapeutic Activities Neuromuscular Re-Ed Manual Therapy Therapeutic Exercise Hot or Cold Pack PT Evaluation Low Complexity Neuromuscular Re-Ed Manual Therapy Therapeutic Exercise Hot or Cold Pack Ultrasound ELECTRONICS ASSEMBLER Acute Therapeutic Activities Neuromuscular Re-Ed Therapeutic Exercise [...] Diagnoses Date Provider Providers Copied on Encounter [facility], [place], [place], [address], tel:[phone] [place] No Information 3 Muehl Zeyad. [address] [facility], [facility] [address], [place], [facility], [place]. tel:[phone] [facility], [place], [place], [address], tel:[phone] [place] No Information 3 Muehl Zeyad. [address] [facility], [facility] [address], [place], [address], [place]. tel:[phone] Referring Provider: Jeronimo Schneider [facility] 100, [place], [address]. tel:[phone] [facility], [place], [place], [address], tel:[phone] [place] No Information 3 Muehl Zeyad. [address] [place] [address], [address], [place], [facility], . tel:[phone] Referring Provider: Tay Rosenberg, [address] [facility], [place], [address]. tel:[phone] [address], [place], [address], tel:[phone] [place] No Information Sep-2 3 Muehl Zeyad. [address] [place] [address], [address], [place], [place], [facility], [place]. tel:[phone] Referring Provider: Tay Rosenberg, [address], [place], [address]. tel:[phone] [address] [facility], [place], [place], [address], tel:[phone] [place] No Information Sep-2 3 Muehl Zeyad. [address] [place] [address], [address], [place], [facility], [place]. tel:[phone] Referring Provider: Tay Rosenberg, [address] [facility], [place], [address]. tel:[phone] [address], [place], [place], [address], tel:[phone] [place] No Information Sep-2 0 3 Muehl Zeyad. [address] [place] [address], [address], [place], [place], [facility], [place]. tel:[phone] Referring Provider: Tay Rosenberg, [address], [place], [address]. tel:[phone], [place], [address], tel:[phone] [place] No Information Sep-1 3 Muehl Zeyad. [address] [place] [address], [address], [place], [place], [facility], [place]. tel:[phone] Referring Provider: Tay Rosenberg, [address] [address], [place], [address]. tel:[phone] [address], [place], [place], [address], tel:[phone] [place] No Information 3 Muehl Zeyad. [address] [place] [address], [address], [facility], . tel:[phone] Referring Provider: aTy Rosenberg, [address] [place] [address], [place], [address]. tel:[phone] [address], [place], [address], tel:[phone] [place] No Information 3 Muehl Ezyad. [address] [place] [address], [address], [facility], . tel:[phone] Referring Provider: Tay Rosenberg, [address] [place] [address], [place], [address]. tel:[phone], [id number], [place] tel:[phone] [place] No Information 3 Muehl Zeyad. [address] [place] [address], [address], [facility], . tel:[phone] Referring Provider: Tay Rosenberg, [address] [place] [address], [place], [address]. tel:[phone] [address], [place], [address], [place] tel:[phone] [facility] No Information 0 Linwood Sharp . Referring Provider: Norbert Murphy, [address] [place] [address] 100, [place], [address]. tel:[phone] [address], [place], [address], [place] tel:[phone] [facility] No Information Apr-2 3-202 0 Hilgedieck Latoya. . Referring Provider: Jeronimo Riggins [facility] [address], [place], [address]. tel:[phone] [facility] [address] [facility] 300, [place], [place], [address], [place] tel:[phone] [facility] No Information Apr-2 1-202 0 Hilgedieck Latoya. . Referring Provider: Norbert Murphy Jeronimo [facility] [address], [place], [address]. tel:[phone] [place] [address] [address] [address], [place], [place], [address], [place] tel:[phone] [facility] No Information Apr-1 6-202 0 Hilgedieck Latoya. . Referring Provider: Jeronimo Riggins [facility] 100, [place], [address]. tel:[phone] [facility] [address] [facility] 300, [place], [place], [address], [place] tel:[phone] [facility] No Information Apr-1 4- 0 Hilgedieck Latoya. . Referring Provider: Jeronimo Riggins [facility] [address], [place], [address]. tel:[phone] [facility] [address] [facility] [address], [place], [place], [address], [place] tel:[phone] [facility] No Information Apr-0 9-202 0 Hilgedieck Latoya. . Referring Provider: Jeronimo Riggins [facility] [address], [place], [address]. tel:[phone] [facility] [address] [facility] 300, [place], [place], [address], [place] tel:[phone] [facility] No Information Apr-0 7-202 0 Walker Giovani. . Referring Provider: Jeronimo Riggins [facility] [address], [place], [address]. tel:[phone] [facility] [address] [facility] [address], [place], [place], [address], [place] tel:[phone] [facility] No Information 0 2- 0 Hilrenettaieck Latoya. . Referring Provider: Norbert Murphy, [address] [facility] 100, [place], [address]. tel:[phone] [place] [address] [address] [facility] [address], [place], [place], [address], [place] tel:[phone] [facility] No Information 0 0 Walker Giovani. . Referring Provider: Norbert Murphy, [address] [place] [address] 100, [place], [place], [address]. tel:[phone] [facility] [address] [facility] 300, [place], [place], [address], [place] tel:[phone] [facility] No Information 0 2- 0 Walker Giovani. . Referring Provider: Norbert Murphy, [address] [place] [address] 100, [place], [address]. tel:[phone] [facility] [address] [facility] [address], [place], [place], [address], [place] tel:[phone] [facility] No Information 0 Petarieck Latoya. . Referring Provider: Norbert Murphy [address] [facility] [address], [place], [address]. tel:[phone] [facility] [address] [facility] [address], [place], [place], [address], [place] tel:[phone] [facility] No Information 0 Walker Giovani. . Referring Provider: Norbert Murphy, [address] [facility] [address], [place], [place], [address]. tel:[phone] [facility] [facility] [address], [place], [place], [address], tel:[phone] [facility] No Information 0 Paula Klein. . Referring Provider: Norbert Murphy, [address] [place] [address] [address], [place], [address]. tel:[phone] [facility] [facility] [address], [place], [place], [address], tel:[phone] [facility] No Information 0 Walker Giovani. . [facility], [place], [place], [address], tel:[phone] [facility] No Information 0 Paula Klein. . [facility] [facility], [place], [place], [address], tel:[phone] [facility] No Information 0 Walker Giovani. . [facility], [place], [place], [address], [place] tel:[phone] [facility] No Information 0 Paula Greera. . [facility] [facility], [place], [place], [address], tel:[phone] [facility] No Information 0 9 Paula Klein. . Family History Family Member Type Diagnosis Age At Onset No Information Payers Payer name Insurance type Covered republican ID Authoriza amanda(s) [employer] EPO WC SP WC [id number] Social History Type Description Quantity Date Captured [...]
--- OUTSIDE RECORDS SUMMARY | 2025-04-19 19:50 | XMS_ITS | Clinical Summary ---
Author Organization [place] [id number] [facility] Address [address] [place] [address] Care Team Providers Care Side Door Worker Name Role Phone Arleen Vu MD Primary [...] 08/14/2021 Assessment & Plan (08/14/2021 8:44 AM HONING MACHINE SET UP OPERATOR TOOL): Overall Condition Chronic Condition: Uncontrolled. Treatment: New Medication: oral tablets and creams prescribed as below. Follow up in 1 month Paresthesia of hand, bilateral 07/24/2021 Assessment & Plan (07/24/2021 9:16 AM HONING MACHINE SET UP OPERATOR TOOL): Acute with a reported past history of [...] 06/11/2021 Assessment & Plan (08/14/2021 8:45 AM HONING MACHINE SET UP OPERATOR TOOL): Overall Condition Chronic Condition: Uncontrolled. Treatment: Recommended [...] to complete dilation, tried to push, NRFHTs, weighed 6lb, 35wks based on peds assessment [...] on file Legal Sex Female 7:53 PM HONING MACHINE SET UP OPERATOR TOOL Gender Identity Female 10/23/2020 10:30 AM HONING MACHINE SET UP OPERATOR TOOL Sexual Orientation Straight 10/23/2020 10 :30 AM HONING MACHINE SET UP OPERATOR TOOL Obstetrics History Para Term AB IAB SAB [...] 2:34 PM CDT Height 160 cm (5' 3) 06/19/2022 2:34 PM CDT Body Mass Index 45.88 06/19/2022 2:34 PM CDT Plan of Treatment Health Maintenance Due Date Last Done Comments Hepatitis C Screening 1989 DTaP/Tdap/Td Vaccine (1 - Tdap) 2000 Hepatitis B Screening 2007 Pneumococcal vaccine <65 (1 of 2 - PCV) 2008 HPV Vaccines (1 - 3-dose SCD M series) 2016 Cervical Cancer Screening 10/31/2018 10/31/2017 Depression Screening 07/23/2022 07/23/2021, 04/30/2021, 04/16/2021, Additional history exists Regular Well Visit/Exam 18-64 05/08/2023, 04/16/2021, 11/14/2020 Influenza Vaccine (#1) 2025 Varicella Vaccines Discontinued Procedures Procedure Name Priority Date/Time Associated Diagnosis Comments THINPREP IMAGING PAP REFLEX HPV MRNA E6/E7 Routine 10/31/2017 11:16 AM HONING MACHINE SET UP OPERATOR TOOL from Last 3 Months or Most Recently Relevant to Health Maintenance Results * ThinPrep Imaging Pap Reflex HPV mRNA E6/E7 (10/31/2017 11:16 AM HONING MACHINE SET UP OPERATOR TOOL) CLINICAL INFORMATION [facility] HISTORICAL RESULTS Comment:Information not prov ided LMP: MIRENA [facility] HISTORICAL RESULTS PREV. PAP: [facility] HISTORICAL RESULTS Comment:NORMAL PREV. BX: [facility] HISTORICAL RESULTS Comment:INFORMATION NOT PROV IDED SOURCE: [facility] HISTORICAL RESULTS Comment:Cervix, Endocervix STATEMENT OF ADEQUACY: [facility] HISTORICAL RESULTS Comment:Satisfactory for thalia luation. Endocervical/transformation zone component present. INTERPRETATION/RESU LT: [facility] HISTORICAL RESULTS Comment:Negative for intraep ithelial lesion or malignancy. COMMENT: [facility] HISTORICAL RESULTS Comment:This Pap test has be en evaluated with computer assisted technology. FACETOR: [facility] HISTORICAL RESULTS Comment:MLO, CT(ASCP) CT scr eening location: [place] [address] [place] [address] 10/31/2017 11:1 6 AM HONING MACHINE SET UP OPERATOR TOOL 11/06/2017 1:05 PM HONING MACHINE SET UP OPERATOR TOOL Narrative [facility] HISTORICAL RESULTS - 11/06/2017 12:34 PM HONING MACHINE SET UP OPERATOR TOOL 0 PERFORMING LAB: , [facility] [address] [facility] [address] Murphy Ramirez MD us Latoya Dawson MD LAB PATHOLOGY ORDERABLES Fin al Result [facility] HISTORICAL RESULTS from Last 3 Months or Most Recently Relevant to Health Maintenance Insurance [facility] Care Teams Side Door Worker Relationship Specialty Start Date End Date Arleen Vu MD [address] [place] [address] DR RENEE [address] [place] [id number] PCP - General Family Medicine 01/10/23
[2025-04-19 20:11] VITALS: BP 136/75; PULSE 82; RESP 16; TEMP 36.9; O2SAT 99
--- NOTE | 2025-04-19 20:51 | ED.HA ---
HPI - Headache General Chief Complaint: Headache Stated Complaint: migraine Time Seen by Provider: 04/19/25 20:44 History of Present Illness HPI Narrative: This is a 35-year-old female with history of migraines who presents to the ED for a migraine. Patient states that for the past 4 days, she has been having a right-sided migraine similar to her prior ones. She has tried her sumatriptan with no relief. She was advised by her PCP to come to the ED for further evaluation and treatment. Patient denies numbness, tingling, changes in vision. Related Data Allergies Allergy/AdvReac Type Severity Reaction Status Date / Time coconut Allergy Intermediate Rash Verified 04/19/25 20:14 Review of Systems Review of Systems: Gen.: Denies fevers or chills Eyes: Denies eye pain or visual change ENT: Denies congestion Respiratory: Denies shortness of breath or cough CV: Denies chest pain or palpitations GI: Denies abdominal pain nausea, emesis or diarrhea denies burning, urgency, frequency or hematuria Musculoskeletal: Denies back pain or muscle pain Neuro: Denies numbness, tingling, weakness or focal weakness Skin: Denies rash Except as documented, all other systems reviewed and negative PMFSH Past Medical History Medical History Headache Obesity Surgical History Surgical History Hx of section History of back surgery H/O hand surgery (~09/2021) Family History Family History Mother Depression Sibling Depression Social History Social History Smoking status: Never smoker Tobacco type: e-cigarettes/vaping Alcohol intake: never Substance use: never Lack of Transportation: No Lack of Food: Never True Current Housing: I Have Housing Concerned About Future Housing: No Difficulty Paying Gas/Electric Bills: No Difficulty Paying for Meds: No Currently Unemployed: No Education: High School Diploma/GED Difficulty w/ Childcare or Family Care: No Course Vital Signs Vital signs: Vital Signs Temperature 98.5 F 04/19/25 20:11 Pulse Rate 82 04/19/25 20:11 Respiratory Rate 16 04/19/25 20:11 Blood Pressure 136/75 04/19/25 20:11 Pulse Oximetry 99 04/19/25 20:11 Oxygen Delivery Room Air 04/19/25 20:11 Temperature 98.5 F 04/19/25 20:11 Pulse Rate 82 04/19/25 20:11 Respiratory Rate 16 04/19/25 20:11 Blood Pressure 136/75 04/19/25 20:11 Pulse Oximetry 99 04/19/25 20:11 Oxygen Delivery Room Air 04/19/25 20:11 MDM - Headache MDM Narrative Medical decision making narrative: 35-year-old female who presents to the ED for a migraine. Patient's headache was not sudden or maximal in onset. There are no focal deficits on exam. Subarachnoid hemorrhage is felt to be unlikely at this time. There is no history of fever and neck is supple to evaluation without meningismus. Meningitis is felt to be unlikely. No traumatic history or signs of trauma on evaluation. Risk factors for cerebral venous thrombosis reviewed, no visual acuity change benign funduscopy. Cerebral venous thrombosis is felt unlikely at this time. No ocular signs of acute glaucoma today. Patient's headache is felt to be recurrence of her migraine. She was given a migraine cocktail with resolution of her headache. She was deemed appropriate for discharge at this time. Advised follow-up with her PCP next week for evaluation. Patient was agreeable to plan. Given strict return precautions. Differential Diagnosis Differential diagnosis: Likely migraine, tension headache and headache Discharge Plan Discharge Clinical Impression: Migraine Qualifiers: Migraine type: unspecified Status migrainosus presence: without status migrainosus Intractability: not intractable Qualified Code(s): G43.909 - Migraine, unspecified, not intractable, without status migrainosus Patient Disposition: Home Condition: Stable Instructions: Antibiotic Form, Migraine Headache (ED) Additional Instructions: You were seen in the ED today for a headache. Your exam was reassuring. You were given a migraine cocktail with improvement. Follow up with your PCP in the next week for reevaluation. Return to the ED for new or worsening symptoms. Patient Language: Malagasy Prescriptions: No Action buspirone 5 mg tablet See Rx Instructions .ROUTE .COMPLEX Qty: 60 0RF Dose Instruction: TAKE 1 TABLET BY MOUTH TWICE DAILY Rx Instructions: TAKE 1 TABLET BY MOUTH TWICE DAILY norethindrone-e.estradiol-iron [Blisovi Fe 09/20 (28)] 1 mg-20 mcg (21)/75 mg (7) tablet See Rx Instructions .ROUTE .COMPLEX Qty: 84 0RF Dose Instruction: TAKE 1 TABLET BY MOUTH DAILY Rx Instructions: TAKE 1 TABLET BY MOUTH DAILY Follow-up/Referrals: PHYSICIAN,HOME SERVICE DEMONSTRATOR [Primary Care Provider, Internal Medicine]
[2025-04-19] MEDS: KETOROLAC 30 MG/ML VIAL (*BKC) IV PUSH (21:02)
[2025-04-19] MEDS: PROCHLORPERAZINE EDISYLATE 10 MG/2 ML VIAL IV PUSH (21:03)
[2025-04-19] MEDS: SODIUM CHLORIDE 0.9% IV 1,000 ML 999 ML IV CONT (21:06)
== END 2025-04-19 22:17 | disposition home or self-care (01) ==
LOC: ANHED 22:11
PROVIDERS: Emergency Provider Student in an Organized Health Care Education/Training Program; PCP Nurse Practitioner Family
DX: G43.909 Migraine, unspecified, not intractable, without status migrainosus (principal); Z79.3 Long term (current) use of hormonal contraceptives
CPT/HCPCS: 96361; 96374; 96375; 99284; J0780; J1200; J1885; J7030

== ENCOUNTER 2025-08-23 09:03 | Outpatient (CLI) | payer OTHER, SELFPAY ==
--- OUTSIDE RECORDS SUMMARY | 2025-08-23 09:19 | XMS_ITS | Clinical Summary ---
Author Organization [place] [id number] [facility] Address [address] [place] [address] Care Team Providers Care Production Supervisor Off Shift Name Role Phone Arleen Vu MD Primary [...] 08/14/2021 Assessment & Plan (08/14/2021 8:44 AM BLOCK MASON): Overall Condition Chronic Condition: Uncontrolled. Treatment: New Medication: oral tablets and creams prescribed as below. Follow up in 1 month Paresthesia of hand, bilateral 07/24/2021 Assessment & Plan (07/24/2021 9:16 AM BLOCK MASON): Acute with a reported past history of [...] 06/11/2021 Assessment & Plan (08/14/2021 8:45 AM BLOCK MASON): Overall Condition Chronic Condition: Uncontrolled. Treatment: Recommended [...] History of 12/17/2020 Overview (12/17/2020): G1 40wk weighed 9#, episiotomy G2: 40wk progressed to [...] Hypertension Mother Yessica Del Rosario Obesity Mother eYssica Del Rosario GI problems Sister 1 Obesity [...] on file Legal Sex Female 7:53 PM BLOCK MASON Gender Identity Female 10/23/2020 10:30 AM BLOCK MASON Sexual Orientation Straight 10/23/2020 10 :30 AM BLOCK MASON Obstetrics History Para Term AB IAB SAB [...] HPV MRNA E6/E7 Routine 10/31/2017 11:16 AM BLOCK MASON from Last 3 Months or Most Recently Relevant to Health Maintenance Results * ThinPrep Imaging Pap Reflex HPV mRNA E6/E7 (10/31/2017 11:16 AM BLOCK MASON) CLINICAL INFORMATION [facility] HISTORICAL RESULTS Comment:Information not prov ided LMP: MIRENA [facility] HISTORICAL RESULTS PREV. PAP: [facility] HISTORICAL RESULTS Comment:NORMAL PREV. BX: [facility] HISTORICAL RESULTS Comment:INFORMATION NOT PROV IDED SOURCE: [facility] HISTORICAL RESULTS Comment:Cervix, Endocervix STATEMENT OF ADEQUACY: [facility] HISTORICAL RESULTS Comment:Satisfactory for thalia luation. Endocervical/transformation zone component present. INTERPRETATION/RESU LT: [facility] HISTORICAL RESULTS Comment:Negative for intraep ithelial lesion or malignancy. COMMENT: [facility] HISTORICAL RESULTS Comment:This Pap test has be en evaluated with computer assisted technology. BARK SPUDDER: [facility] HISTORICAL RESULTS Comment:MLO, CT(ASCP) CT scr eening location: [place] [address] [place] [address] 10/31/2017 11:1 6 AM BLOCK MASON 11/06/2017 1:05 PM BLOCK MASON Narrative [facility] HISTORICAL RESULTS - 11/06/2017 12:34 PM BLOCK MASON 0 PERFORMING LAB: , [facility] [address] [facility] [address] Murphy Ramirez MD us Latoya Dawson MD LAB PATHOLOGY ORDERABLES Fin al Result [facility] HISTORICAL RESULTS from Last 3 Months or Most Recently Relevant to Health Maintenance Insurance [facility] Care Teams Production Supervisor Off Shift Relationship Specialty Start Date End Date Arleen Vu MD [address] [place] [address] DR RENEE [address] [place] [id number] PCP - General Family Medicine 01/10/23
--- OUTSIDE RECORDS SUMMARY | 2025-08-23 09:19 | XMS_ITS | Clinical Summary ---
Author Organization [facility] Address [address] [place] [address] Care Team Providers Care Power Equipment Technology Instructor Name Role Phone Joshua Peace MD Primary Care Provider [phone] Source Comments [facility],non-owned Affiliates and Associated Physician Practices is amultiple site organization consisting of ambulatory clinics and hospital sitesin [place], [place], [place] and [place]. This disclosure is being madepursuant to the Care Everywhere program and may not contain all information available regarding this patient. Last updated 18.[facility] Allergies Active Allergy Reactions Criticality Noted Date Comments Coconut Flavor Rash Medium 11/08/2021 Medications * Be aware that medications may not be up to date on this document. Alwaysverify current medications with the patient. albuterol HFA (PROVENTIL;VENT YOON;PROAIR) 108 (90 BASE) MCG/ACT inhaler Inhale 2 Puffs by mouth every 4 hours as needed for Shortness of Breath or Wheezing. 1 Inhaler 1 5 Active Additional Information Patient not taking.Reported on 01/24/2022 ondansetron (ZOFRAN) 4 MG tablet Take 1 Tab by mouth every 4 hours as needed for Nausea/Vomiting 10 Tab 0 5 Active Additional Information Patient not taking.Reported on 01/24/2022 phentermine (ADIPEX-P) 37.5 MG tablet 2 Active SUMAtriptan (IMITREX) 50 MG tablet 2 Active ketoconazole (NIZORAL) 2 % cream APPLY TOPICALLY TO THE AFFECTED AREA TWICE DAILY 2 Active triamcinolone acetonide (KENALOG) 0.1 % cream APPLY TOPICALLY TO THE AFFECTED AREA 1 TO 2 TIMES DAILY NEEDED 2 Active EPINEPHrine (EPIPEN) 0.3 MG/0.3ML auto-injector pen INJECT 0.3 ML INTO THE MUSCLE INSTRUCTED NEEDED FOR ANAPHYLAXIS CALL 911 AFTER USE 1 Active Multiple Vitamins-Minera ls (CENTRUM SILVER) TABS Take 1 tablet by [...] drink = 0.6 oz pur e alcohol) Comments Unknown Sex and Gender Information Value Date Recorded Sex Assigned at Not on file Legal Sex Female 5:34 AM MOBILE EQUIPMENT SERVICER Gender Identity Not on file Sexual Orientation [...] CDT per pt Height 159.8 cm (5' 2.91) 01/24/2022 10:00 AM C DT Body Mass Index 46.54 01/24/2022 10:00 AM CDT Plan of Treatment Health Maintenance Due Date Last Done Comments HIV SCREENING 2004 HEPATITIS C SCREENING 03/02/2007 DTAP/TDAP/TD VACCINES (1 - Tdap) 2008 HEPATITIS B VACCINE (1 of 3 - 19+ 3-dose series) 2008 HPV VACCINE (1 - 3-dose SCDM series) 2016 DEPRESSION SCREENING 09/01/2024 COVID-19 VACCINE (1 - 2024-2 6 season) 2025 INFLUENZA VACCINE (#1) 2025 ZOSTER VACCINE (1 of 2) 2039 HIB VACCINE Aged Out No longer eligi ble based on patient's age to complete this topic MENINGOCOCCAL (Group B) VACC INE SHARED DECISION-MAKING Aged Out No longer eligibl e based on patient's age to complete this topic MENINGOCOCCAL GROUPS A/C/Y/W VACCINE Aged Out No longer eligible b ased on patient's age to complete this topic PNEUMOCOCCAL VACCINE Aged Out No long er eligible based on patient's age to complete this topic Insurance [facility] Care Teams Power Equipment Technology Instructor Relationship Specialty Start Date End Date Joshua Peace MD [address] [facility] [address] [place] [id number] PCP - General 11/05/21
[2025-08-23 10:12] LABS: Hematocrit 37.4 % (37.0-47.0); Hemoglobin 12.6 g/dL (12.0-15.0); Immature Granulocyte Percent A 0.2 % (0-0.5); Lymphocytes Absolute Auto 1.69 K/mm3 (0.9-3.2); Mean Corpuscular HGB Conc 33.7 g/dl (32-36); Mean Corpuscular Hemoglobin 30.7 pg (26-34); Mean Corpuscular Volume 91.0 fl (80-100); Nucleated Red Blood Cells Absolute Auto 0.000 K/mm3 (0.0-0.012); Nucleated Red Blood Cells Perc 0.0 % (0.0-0.2); Platelet Count Result 208 k/mm3 (150-375); Red Blood Count 4.11 M/mm3 (4.2-5.4); White Blood Count 5.8 K/mm3 (4.5-10.0)
[2025-08-23 10:35] LABS: Alanine Aminotransferase 15 U/L (6-35); Albumin Level 4.2 g/dL (3.5-5.1); Alkaline Phosphatase 38 U/L (38-126); Anion Gap 8 mmol/L (4-12); Aspartate Amino Transferase 24 U/L (14-36); Bilirubin,Total 0.8 mg/dL (0.2-1.3); Blood Urea Nitrogen 15 mg/dL (7-17); Calcium 8.8 mg/dL (8.4-10.2); Carbon Dioxide 23 mmol/L (22-30); Chloride 106 mmol/L (98-107); Cholesterol 191 mg/dL (0-200); Estimated Glomerular Filt Rate > 60; Glucose 82 mg/dL (65-110); HDL Direct 65 mg/dL; Potassium 3.9 mmol/L (3.4-5.0); Sodium 137 mmol/L (137-145); Total Protein 6.9 g/dL (6.3-8.2); Triglycerides 57 mg/dL (<150)
[2025-08-23 10:51] LABS: Free T3 3.88 pg/mL (2.32-6.09); Free T4 Free Thyroxine 1.06 ng/dL (0.78-2.19)
[2025-08-23 11:11] LABS: Thyroid Stimulating Hormone 1.440 uIU/mL (0.465-4.680)
== END 2025-08-23 09:04 | disposition home or self-care (01) ==
LOC: ANHLAB 09:06
PROVIDERS: PCP Internal Medicine; Visit Provider Internal Medicine
DX: Z13.6 Encounter for screening for cardiovascular disorders (principal); R53.83 Other fatigue; I10 Essential (primary) hypertension
CPT/HCPCS: 36415; 80053; 80061; 84439; 84443; 84481; 85025

== ENCOUNTER 2025-08-28 15:15 | Emergency (ER) | payer OTHER, SELFPAY ==
--- OUTSIDE RECORDS SUMMARY | 2023-07-15 01:49 | XMS_ITS | Continuity of Care Document ---
Author Organization [facility] [place] Address [address] [place] [address] Phone Care Team Providers Care Tripper Name Role Phone Zeyad Shields Unavailable Unavailable Procedures Procedure Date SPECIAL AGENT IN CHARGE Acute Therapeutic Activities Neuromuscular Re-Ed Therapeutic Exercise Hot or Cold Pack Therapeutic Activities Neuromuscular Re-Ed Therapeutic Exercise Hot or Cold Pack Therapeutic Activities Neuromuscular Re-Ed Therapeutic Exercise Hot or Cold Pack Progress Note Therapeutic Activities May- Neuromuscular Re-Ed May- Therapeutic Exercise May- Hot or Cold Pack Therapeutic Activities Neuromuscular Re-Ed May- Therapeutic Exercise May- Hot or Cold Pack May- Therapeutic Activities May- Neuromuscular Re-Ed May- Therapeutic Exercise May- Manual Therapy May- Hot or Cold Pack Therapeutic Activities Neuromuscular Re-Ed May- Therapeutic Exercise May- Manual Therapy May- Hot or Cold Pack May- Therapeutic Activities May- Neuromuscular Re-Ed May- Therapeutic Exercise May- Manual Therapy May- Hot or Cold Pack PT Evaluation Moderate Complexity Neuromuscular Re-Ed SPECIAL AGENT IN CHARGE Acute Therapeutic Activities Neuromuscular Re-Ed Therapeutic Exercise Therapeutic Activities Neuromuscular Re-Ed Therapeutic Exercise Manual Therapy Therapeutic Activities Neuromuscular Re-Ed Therapeutic Exercise Manual Therapy Therapeutic Activities Neuromuscular Re-Ed Therapeutic Exercise Manual Therapy Therapeutic Activities Neuromuscular Re-Ed Therapeutic Exercise Manual Therapy Therapeutic Activities Neuromuscular Re-Ed Therapeutic Exercise Manual Therapy Therapeutic Activities Neuromuscular Re-Ed Therapeutic Exercise Manual Therapy SPECIAL AGENT IN CHARGE Acute Neuromuscular Re-Ed Therapeutic Exercise Manual Therapy Hot or Cold Pack SPECIAL AGENT IN CHARGE Acute Therapeutic Activities Neuromuscular Re-Ed Therapeutic Exercise Manual Therapy Hot or Cold Pack Therapeutic Activities Neuromuscular Re-Ed Therapeutic Exercise Manual Therapy Hot or Cold Pack Ultrasound Therapeutic Activities Neuromuscular Re-Ed Therapeutic Exercise Manual Therapy Hot or Cold Pack Ultrasound Therapeutic Activities Neuromuscular Re-Ed Therapeutic Exercise Manual Therapy Hot or Cold Pack PT Evaluation Low Complexity Neuromuscular Re-Ed Therapeutic Exercise Manual Therapy Hot or Cold Pack Ultrasound SPECIAL AGENT IN CHARGE Acute Therapeutic Activities Neuromuscular Re-Ed Therapeutic Exercise Manual Therapy Hot or Cold Pack Electrical Stimulation Therapeutic Activities Neuromuscular Re-Ed Therapeutic Exercise Manual Therapy Hot or Cold Pack Electrical Stimulation Therapeutic Activities Therapeutic Exercise Manual Therapy Therapeutic Activities Therapeutic Exercise Manual Therapy Hot or Cold Pack Electrical Stimulation PT Evaluation Low Complexity Neuromuscular Re-Ed Therapeutic Exercise Manual Therapy Hot or Cold Pack Electrical Stimulation Advance Directives Directive Yes / No Effective Date File Name No Information Encounters Encounter Description Practice Location Reason(s) For Visit Diagnoses Date Provider Providers Copied on Encounter [facility], [place], [place], [id number], tel:[phone] [place] No Information 3 Muehl Zeyad. [address] [facility] [address], [place], [facility] [place], [place]. tel:[phone] [facility], [place], [place], [id number], tel:[phone] [place] No Information 3 Muehl Zeyad. [address] [facility] [address], [place], [address], [place]. tel:[phone] Referring Provider: Jeronimo Schneider [facility] [address], [place], [address]. tel:[phone] [facility], [place], [place], [id number], tel:[phone] [place] No Information 3 Muehl Zeyad. [address] [place] [address], [address], [place], [place], [facility] [place], . tel:[phone] Referring Provider: Tay Rosenberg, [address] [facility], [place], [address]. tel:[phone] [address], [place], [id number], tel:[phone] [place] No Information Sep-2 3 Muehl Zeyad. [address] [place] [address], [address], [place], [place], [facility] [place], [place]. tel:[phone] Referring Provider: Tay Rosenberg, [address], [place], [address]. tel:[phone] [facility], [place], [place], [id number], tel:[phone] [place] No Information Sep-2 3 Muehl Zeyad. [address] [place] [address], [address], [place], [facility] [place], [place]. tel:[phone] Referring Provider: Tay Rosenberg, [address] [facility], [place], [address]. tel:[phone] [address], [place], [place], [address], tel:[phone] [place] No Information Sep-2 0 3 Muehl Zeyad. [address] [place] [address], [address], [place], [place], [facility] [place], [place]. tel:[phone] Referring Provider: Tay Rosenberg, [address], [place], [address]. tel:[phone], [place], [id number], tel:[phone] [place] No Information Sep-1 3 Muehl Zeyad. [address] [place] [address], [address], [place], [place], [facility] [place], [place]. tel:[phone] Referring Provider: Tay Rosenberg, [address] [address], [place], [address]. tel:[phone] [address], [place], [place], [id number], tel:[phone] [place] No Information 3 Muehl Zeyad. [address] [place] [address], [address], [facility] [place], . tel:[phone] Referring Provider: Tay Rosenberg, [address] [place] [address], [place], [address]. tel:[phone], [place], [id number], tel:[phone] [place] No Information 3 Muehl Zeyad. [address] [place] [address], [address], [facility] [place], . tel:[phone] Referring Provider: Tay Rosenberg, [address] [place] [address], [place], [address]. tel:[phone], [id number], [place] tel:[phone] [place] No Information 3 Muehl Zeyad. [address] [place] [address], [address], [facility] [place], . tel:[phone] Referring Provider: Tay Rosenberg, [address] [place] [address], [place], [address]. tel:[phone] [address], [place], [place], [id number], [place] tel:[phone] [facility] No Information 0 Linwood Sharp . Referring Provider: Norbert Murphy, [address] [place] [address] [address], [place], [address]. tel:[phone] [address], [place], [place], [id number], [place] tel:[phone] [facility] No Information Apr-2 3-202 0 Hilgedieck Latoya. . Referring Provider: Jeronimo Riggins [facility] [address], [place], [address]. tel:[phone] [facility] [address] [facility] [address], [place], [place], [id number], [place] tel:[phone] [facility] No Information Apr-2 1-202 0 Hilgedieck Latoya. . Referring Provider: Norbert Murphy Jeronimo [facility] [address], [place], [address]. tel:[phone] [place] [address] [address] [address], [place], [place], [id number], [place] tel:[phone] [facility] No Information Apr-1 6-202 0 Hilgedieck Latoya. . Referring Provider: Jeronimo Riggins [facility] [address], [place], [address]. tel:[phone] [facility] [address] [facility] [address], [place], [place], [id number], [place] tel:[phone] [facility] No Information Apr-1 4- 0 Hilgedieck Latoya. . Referring Provider: Jeronimo Riggins [facility] [address], [place], [address]. tel:[phone] [facility] [address] [facility] [address], [place], [place], [id number], [place] tel:[phone] [facility] No Information Apr-0 9-202 0 Hilgedieck Latoya. . Referring Provider: Jeronimo Riggins [facility] [address], [place], [address]. tel:[phone] [facility] [address] [facility] [address], [place], [place], [id number], [place] tel:[phone] [facility] No Information Apr-0 7-202 0 Walker Giovani. . Referring Provider: Jeronimo Riggins [facility] [address], [place], [address]. tel:[phone] [facility] [address] [facility] [address], [place], [place], [id number], [place] tel:[phone] [facility] No Information 0 2- 0 Hilrenettaieck Latoya. . Referring Provider: Norbert Murphy, [address] [facility] [address], [place], [address]. tel:[phone] [place] [address] [address] [facility] [address], [place], [place], [id number], [place] tel:[phone] [facility] No Information 0 0 Walker Giovani. . Referring Provider: Norbert Murphy, [address] [place] [address], [place], [place], [address]. tel:[phone] [facility] [address] [facility] [address], [place], [place], [id number], [place] tel:[phone] [facility] No Information 0 2- 0 Walker Giovani. . Referring Provider: Norbert Murphy, [address] [place] [address], [place], [address]. tel:[phone] [facility] [address] [facility] [address], [place], [place], [id number], [place] tel:[phone] [facility] No Information 0 Petarieck Latoya. . Referring Provider: Norbert Murphy [address] [facility] [address], [place], [address]. tel:[phone] [facility] [address] [facility] [address], [place], [place], [address], [place] tel:[phone] [facility] No Information 0 Walker Giovani. . Referring Provider: Norbert Murphy, [address] [facility] [address], [place], [place], [address]. tel:[phone] [facility] [facility] [address], [place], [place], [address], tel:[phone] [facility] No Information 0 Paula Klein. . Referring Provider: Norbert Murphy, [address] [place] [address] [address], [place], [address]. tel:[phone] [facility] [facility] [address], [place], [place], [address], tel:[phone] [facility] No Information 0 Walker Giovani. . [facility], [place], [place], [address], tel:[phone] [facility] No Information 0 Paula Klein. . [facility] [facility] [address], [place], [place], [address], tel:[phone] [facility] No Information 0 Walker Giovani. . [facility], [place], [place], [address], [place] tel:[phone] [facility] No Information 0 Paula Greera. . [facility] [facility] [address], [place], [place], [address], tel:[phone] [facility] No Information 0 9 Paula Klein. . Family History Family Member Type Diagnosis Age At Onset No Information Payers Payer name Insurance type Covered republican ID Authoriza amanda(s) [employer] EPO WC SP WC [id number] Social History Type Description Quantity Date Captured Comments Sex Female Smoking Status No Information Chief Complaint And Reason For Visit No Information Reason For Referral Reason For Referral No Information Plan Of Treatment Date Type Action Status Goal Tobacco Cessation Counseling completed Goal Tobacco cessation counseling completed Referral Ordered: Referrals: Specialist. Evaluate and Treat (related to Adjustment disorder with depressed mood) ordered Referral Ordered: Depression: Depression management program timeframe: 1 Day. (related to Depression) ordered Referral Ordered: Clinical Psychology (related to Depression) ordered History Of Present Illness Encounter Date Complaint History Of Prese nt Illness No Information Functional Status Date Functional Assessmen t No Information Instructions Date Instruction Additional Infor mation Prescribed activity/exercise edu cation Related to Overweight Dietary needs education Related to Overweight Dietary needs education Related to Overweight Assessments Type Assessment Date No Information Patient Care Teams Name Effective Dates (start - stop) Status Members No Information
--- OUTSIDE RECORDS SUMMARY | 2023-07-15 01:49 | XMS_ITS | Continuity of Care Document ---
Author Organization [employer] [place] Address [address] [facility] [address] [place] [address] Phone Care Team Providers Care Oxidation Operator Name Role Phone Zeyad Shields Unavailable Unavailable Procedures Procedure Date CUSTOMER SUPPORT AGENT Acute Therapeutic Activities Neuromuscular Re-Ed Therapeutic Exercise Hot or Cold Pack Therapeutic Activities Neuromuscular Re-Ed Therapeutic Exercise Hot or Cold Pack Therapeutic Activities Neuromuscular Re-Ed Hot or Cold Pack Therapeutic Exercise Progress Note Neuromuscular Re-Ed May- Therapeutic Activities May- Therapeutic Exercise May- Hot or Cold Pack Therapeutic Activities Neuromuscular Re-Ed May- Therapeutic Exercise May- Hot or Cold Pack Therapeutic Activities May- Neuromuscular Re-Ed May- Therapeutic Exercise May- Manual Therapy May- Hot or Cold Pack Therapeutic Activities Neuromuscular Re-Ed May- Therapeutic Exercise May- Manual Therapy May- Hot or Cold Pack May- Therapeutic Activities May- Neuromuscular Re-Ed May- Therapeutic Exercise May- Manual Therapy May- Hot or Cold Pack PT Evaluation Moderate Complexity Neuromuscular Re-Ed CUSTOMER SUPPORT AGENT Acute Therapeutic Activities Therapeutic Exercise Neuromuscular Re-Ed Therapeutic Activities Neuromuscular Re-Ed Therapeutic Exercise Manual Therapy Therapeutic Activities Neuromuscular Re-Ed Therapeutic Exercise Manual Therapy Therapeutic Activities Neuromuscular Re-Ed Manual Therapy Therapeutic Exercise Therapeutic Activities Neuromuscular Re-Ed Therapeutic Exercise Manual Therapy Therapeutic Activities Neuromuscular Re-Ed Therapeutic Exercise Manual Therapy Therapeutic Activities Neuromuscular Re-Ed Therapeutic Exercise Manual Therapy CUSTOMER SUPPORT AGENT Acute Therapeutic Exercise Neuromuscular Re-Ed Manual Therapy Hot or Cold Pack CUSTOMER SUPPORT AGENT Acute Therapeutic Activities Therapeutic Exercise Neuromuscular Re-Ed Hot or Cold Pack Manual Therapy Therapeutic Activities Therapeutic Exercise Neuromuscular Re-Ed Hot or Cold Pack Manual Therapy Ultrasound Therapeutic Activities Neuromuscular Re-Ed Therapeutic Exercise Hot or Cold Pack Manual Therapy Ultrasound Therapeutic Activities Neuromuscular Re-Ed Manual Therapy Therapeutic Exercise Hot or Cold Pack PT Evaluation Low Complexity Neuromuscular Re-Ed Manual Therapy Therapeutic Exercise Hot or Cold Pack Ultrasound CUSTOMER SUPPORT AGENT Acute Therapeutic Activities Neuromuscular Re-Ed Therapeutic Exercise Manual Therapy Hot or Cold Pack Electrical Stimulation Therapeutic Activities Neuromuscular Re-Ed Therapeutic Exercise Manual Therapy Hot or Cold Pack Electrical Stimulation Therapeutic Activities Manual Therapy Therapeutic Exercise Therapeutic Activities Therapeutic Exercise Manual Therapy Hot or Cold Pack Electrical Stimulation PT Evaluation Low Complexity Neuromuscular Re-Ed Manual Therapy Therapeutic Exercise Hot or Cold Pack Electrical Stimulation Advance Directives Directive Yes / No Effective Date File Name No Information Encounters Encounter Description Practice Location Reason(s) For Visit Diagnoses Date Provider Providers Copied on Encounter [facility], [place], [place], [address], tel:[phone] [place] No Information 3 Muehl Zeyad. [address] [facility], [facility] [address], [place], [facility], [place]. tel:[phone] [facility], [place], [place], [address], tel:[phone] [place] No Information 3 Muehl Zeyad. [address] [facility], [facility] [address], [place], [address], [place]. tel:[phone] Referring Provider: Jeronimo Schneider [facility] [address], [place], [address]. tel:[phone] [facility], [place], [place], [address], tel:[phone] [place] No Information 3 Muehl Zeyad. [address] [place] [address], [address], [place], [place], [facility], . tel:[phone] Referring Provider: Tay Rosenberg, [address] [facility], [place], [address]. tel:[phone] [address], [place], [address], tel:[phone] [place] No Information Sep-2 3 Muehl Zeyad. [address] [place] [address], [address], [place], [place], [facility], [place]. tel:[phone] Referring Provider: Tay Rosenberg, [address], [place], [address]. tel:[phone] [address] [facility], [place], [place], [address], tel:[phone] [place] No Information Sep-2 3 Muehl Zeyad. [address] [place] [address], [address], [place], [facility], [place]. tel:[phone] Referring Provider: Tay Rosenberg, [address] [facility], [place], [address]. tel:[phone] [address], [place], [place], [address], tel:[phone] [place] No Information Sep-2 0 3 Muehl Zeyad. [address] [place] [address], [address], [place], [place], [facility], [place]. tel:[phone] Referring Provider: Tay Rosenberg, [address], [place], [address]. tel:[phone], [place], [address], tel:[phone] [place] No Information Sep-1 3 Muehl Zeyad. [address] [place] [address], [address], [place], [place], [facility], [place]. tel:[phone] Referring Provider: Tay Rosenberg, [address] [address], [place], [address]. tel:[phone] [address], [place], [place], [address], tel:[phone] [place] No Information 3 Muehl Zeyad. [address] [place] [address], [address], [facility], . tel:[phone] Referring Provider: Tay Rosenberg, [address] [place] [address], [place], [address]. tel:[phone] [address], [place], [address], tel:[phone] [place] No Information 3 Muehl Zeyad. [address] [place] [address], [address], [facility], . tel:[phone] Referring Provider: Tay Rosenberg, [address] [place] [address], [place], [address]. tel:[phone], [id number], [place] tel:[phone] [place] No Information 3 Muehl Zeyad. [address] [place] [address], [address], [facility], . tel:[phone] Referring Provider: Tay Rosenberg, [address] [place] [address], [place], [address]. tel:[phone] [address], [place], [place], [address], [place] tel:[phone] [facility] No Information 0 Linwood Sharp . Referring Provider: Norbert Murphy, [address] [place] [address] 100, [place], [address]. tel:[phone] [address], [place], [address], [place] tel:[phone] [facility] No Information Apr-2 3-202 0 Hilgedieck Latoya. . Referring Provider: Jeronimo Riggins [facility] [address], [place], [address]. tel:[phone] [facility] [address] [facility] [address], [place], [place], [address], [place] tel:[phone] [facility] No Information Apr-2 1-202 0 Hilgedieck Latoya. . Referring Provider: Norbert Murphy Jeronimo [facility] [address], [place], [address]. tel:[phone] [place] [address] [address] [address], [place], [place], [address], [place] tel:[phone] [facility] No Information Apr-1 6-202 0 Hilgedieck Latoya. . Referring Provider: Jeronimo Riggins [facility] 100, [place], [address]. tel:[phone] [facility] [address] [facility] [address], [place], [place], [address], [place] tel:[phone] [facility] No Information Apr-1 4- 0 Hilgedieck Latoya. . Referring Provider: Jeronimo Riggins [facility] [address], [place], [address]. tel:[phone] [facility] [address] [facility] [address], [place], [place], [address], [place] tel:[phone] [facility] No Information Apr-0 9-202 0 Hilgedieck Latoya. . Referring Provider: Jeronimo Riggins [facility] [address], [place], [address]. tel:[phone] [facility] [address] [facility] [address], [place], [place], [address], [place] tel:[phone] [facility] No Information Apr-0 7-202 0 Walker Giovani. . Referring Provider: Jeronimo Riggins [facility] [address], [place], [address]. tel:[phone] [facility] [address] [facility] [address] [facility] [address], [place], [place], [address], [place] tel:[phone] [facility] No Information 0 2- 0 Hilrenettaieck Latoya. . Referring Provider: Norbert Murphy, [address] [facility] [address], [place], [address]. tel:[phone] [place] [address] [address] [facility], [place], [place], [address], [place] tel:[phone] [facility] No Information 0 0 Walker Giovani. . Referring Provider: Norbert Murphy, [address] [place] [address] 100, [place], [place], [address]. tel:[phone] [facility] [address] [facility] [address], [place], [address], [place] tel:[phone] [facility] No Information 0 2- 0 Walker Giovani. . Referring Provider: Norbert Murphy, [address] [place] [address] 100, [place], [address]. tel:[phone] [facility] [address] [facility] [address], [place], [address], [place] tel:[phone] [facility] No Information 0 Petarieck Latoya. . Referring Provider: Norbert Murphy [address] [facility] [address], [place], [address]. tel:[phone] [facility] [address] [facility] [address], [place], [place], [address], [place] tel:[phone] [facility] No Information 0 Walker Giovani. . Referring Provider: Norbert Murphy, [address] [facility] [address], [place], [place], [address]. tel:[phone] [facility] [facility], [place], [place], [address], tel:[phone] [facility] No Information 0 Paula Klein. . Referring Provider: Norbert Murphy, [address] [place] [address] [address], [place], [address]. tel:[phone] [facility] [facility] [address] [facility], [place], [place], [address], tel:[phone] [facility] No Information 0 Walker Giovani. . [facility], [place], [place], [address], tel:[phone] [facility] No Information 0 Paula Klein. . [facility] [address], [place], [place], [address], tel:[phone] [facility] No Information 0 Walker Giovani. . [facility], [place], [place], [address], [place] tel:[phone] [facility] No Information 0 Paula Greera. . [facility] [address], [place], [place], [address], tel:[phone] [facility] No Information 0 9 Paula Klein. . Family History Family Member Type Diagnosis Age At Onset No Information Payers Payer name Insurance type Covered green party ID Authoriza amanda(s) [employer] EPO WC SP WC [id number] Social History Type Description Quantity Date Captured [...]
--- NOTE | ~2025-08-28 | XR_ITS ---
EXAMINATION: XR foot RT min 3V DATE: 08/28/2025 15:54 INDICATION: Lateral right foot. TECHNIQUE: 4 views of right foot were obtained. COMPARISON: None. FINDINGS: No acute fracture or dislocation of right foot. Alignment of the bones of the joints of the foot are normal including Lisfranc joints. Plantar calcaneal spur. IMPRESSION: 1. No acute fracture. Repeat radiograph after a few days is recommended if symptoms are localized and persistent. Reviewed, dictated and finalized at location T. [facility] IMPRESSION: 1. No acute fracture. Repeat radiograph after a few days is recommended if symp toms are localized and persistent.
--- OUTSIDE RECORDS SUMMARY | 2025-08-28 15:17 | XMS_ITS | Clinical Summary ---
Author Organization [place] [id number] [facility] Address [address] [place] [address] Care Team Providers Care Nursing Program Director Name Role Phone Arleen Vu MD Primary [...] 08/14/2021 Assessment & Plan (08/14/2021 8:44 AM RADIO NEWS WRITER): Overall Condition Chronic Condition: Uncontrolled. Treatment: New Medication: oral tablets and creams prescribed as below. Follow up in 1 month Paresthesia of hand, bilateral 07/24/2021 Assessment & Plan (07/24/2021 9:16 AM RADIO NEWS WRITER): Acute with a reported past history of [...] 06/11/2021 Assessment & Plan (08/14/2021 8:45 AM RADIO NEWS WRITER): Overall Condition Chronic Condition: Uncontrolled. Treatment: Recommended [...] on file Legal Sex Female 7:53 PM RADIO NEWS WRITER Gender Identity Female 10/23/2020 10:30 AM RADIO NEWS WRITER Sexual Orientation Straight 10/23/2020 10 :30 AM RADIO NEWS WRITER Obstetrics History Para Term AB IAB SAB [...] HPV MRNA E6/E7 Routine 10/31/2017 11:16 AM RADIO NEWS WRITER from Last 3 Months or Most Recently Relevant to Health Maintenance Results * ThinPrep Imaging Pap Reflex HPV mRNA E6/E7 (10/31/2017 11:16 AM RADIO NEWS WRITER) CLINICAL INFORMATION [facility] HISTORICAL RESULTS Comment:Information not prov ided LMP: MIRENA [facility] HISTORICAL RESULTS PREV. PAP: [facility] HISTORICAL RESULTS Comment:NORMAL PREV. BX: [facility] HISTORICAL RESULTS Comment:INFORMATION NOT PROV IDED SOURCE: [facility]ISTORICAL RESULTS Comment:Cervix, Endocervix STATEMENT OF ADEQUACY: [facility] HISTORICAL RESULTS Comment:Satisfactory for thalia luation. Endocervical/transformation zone component present. INTERPRETATION/RESU LT: [facility] HISTORICAL RESULTS Comment:Negative for intraep ithelial lesion or malignancy. COMMENT: [facility] HISTORICAL RESULTS Comment:This Pap test has be en evaluated with computer assisted technology. RESEARCH ARCHAEOLOGIST: [facility] HISTORICAL RESULTS Comment:MLO, CT(ASCP) CT scr eening location: [place] [address] [place] [address] 10/31/2017 11:1 6 AM RADIO NEWS WRITER 11/06/2017 1:05 PM RADIO NEWS WRITER Narrative [facility] HISTORICAL RESULTS - 11/06/2017 12:34 PM RADIO NEWS WRITER 0 PERFORMING LAB: , [facility] [address] [facility] [phone] Murphy Ramirez MD us Latoya Dawson MD LAB PATHOLOGY ORDERABLES Fin al Result [facility] HISTORICAL RESULTS from Last 3 Months or Most Recently Relevant to Health Maintenance Insurance [facility] Care Teams Nursing Program Director Relationship Specialty Start Date End Date Arleen Vu MD [address] [place] [address] DR RENEE [address] [place] [id number] PCP - General Family Medicine 01/10/23
--- OUTSIDE RECORDS SUMMARY | 2025-08-28 15:17 | XMS_ITS | Data Portability ---
Author Organization [facility] [employer] Main Office Address [address] [place] [address] Care Team Providers Care Senior Sales Operations Manager Name Role Phone TOD GOLD Primary Care Provider [phone] Assessment No assessment recorded. Plan of Treatment Reminders Order Date Submit Date Provider Last Modified By Organization Details Last Modified Time Details Appointments None recorded. Lab None recorded. Referral endocrinol ogy referral - DST of 3 ug/dl with low ACTH and needs CT adrenals may need cortisol ericka; urinary and salivary tests pending drawn in April 082022 023 MICHAEL Owens MD, [address], [place], [address], 3 12:35:[address]/dietiti an referral - Please call the patient to make an appt. Thank you 20[email or web address], [address] [place], [address], 3 18:17:20 orthopedic surgeon referral 2022 023 [email or web address] Cabrera Jenkins MD, [address] [facility] , [address], [place], [address], 3 15:56:[address] referral - ADHD evaluation Please call pt to schedule appt. Thank you 2022 023 [email or web address] Lucius Murillo MD, [address], [address], [place], [address], 11:26:39 Procedures None recorded. Surgeries None recorded. Imaging None recorded. Medication Orders Mounjaro 2.5 mg/0.5 mL subcutaneo us pen injector 2022 023 [email or web address] [id number], [address] [facility], [place], [place], [id number], 11:03:01 Patient TargetsNo targets recorded. Patient InstructionsNo instructions recorded. Reason for Referral Psychiatrist Referral for Po or focus ADHD evaluation Please call pt to schedule appt. Thank you Referring Physician: Tod Gold [facility], Encounter Date: 11/08/2022 Orthopedic Surgeon Referral for Injury of finger Referring Physician: Arleen Vu [facility], Encounter Date: 01/09/2023 Meat Products Demonstrator/dietitian Refer ral for Body mass index 40+ - severely obese Please call the patient to make an appt. Thank you Referring Physician: Tod Gold [facility], Encounter Date: 01/14/2023 Endocrinology Referral for [...] thyro id No observ ation record ed. [address], [place], [address], 11/18/2022 09:25:59 11/15/1911/13/2022 [place], thyro id No observ ation record ed. [address], [place], [address], 11/18/2022 09:27:59 12/07/1912/0512/05/2022 CT, lumba r spine , w/o contr ast No observ ation record ed. [address], [place], [address], 12/09/2022 20:05:18 Result Notes None recorded. Problems Name Problem SNOMED Code Status Onset Date Resolution Date Notes Provider Name and Address Organization Details Recorded Time Hyperparathyr oidism 93072085 Active 2021 Not Available [facility] [employer] 3 01:01:09 Weight gain 0234778 Active 2021 Not Available [facility] 3 01:01:10 Morbid obesity 782646370 Active 2021 Not Available [facility] [employer] 3 01:01:09 Hypercalciuri a 81908388 Active 2021 Not Available [facility] [employer] 3 01:01:09 Irregular periods 36724536 Active 2021 Not Available [facility] [employer] 3 01:01:10 Obesity 964199469 Active 2021 Not Available [employer] 3 01:01:09 Hirsutism 392762615 Active 2021 Not Available [facility] [employer] 3 01:01:09 Prediabetes 898194020 Active 2022 CRISTIAN Polanco [address], [address], [place], [address] , [employer] 3 11:07:38 Migraine 00978889 Active 2022 CRISTIAN Polanco [address], [place], [address] , [employer] 3 11:07:55 Intertrigo 96697272 Active 2022 CRISTIAN Polanco [address], [place], [address] , [employer] 3 11:08:21 Nicotine dependence 90835905 Active 2022 CRISTIAN Polanco [address], [place], [address] , [facility] [employer] [facility] 3 11:11:27 Poor focus 018447974 Active 2022 CRISTIAN Polanco [address] [facility], [address] [address], [place], [address] , [facility] [employer] [facility] 3 11:12:24 Abnormal cortisol 842122395 Active 2022 Alicia Nichols MD [address] [facility], [address] [address], [place], [address] , [facility] [employer] [facility] 3 11:33:18 Injury of finger 02078902 Active 2022 Arleen Vu MD [address] [facility], [address] [address], [place], [address] , [facility] [employer] [facility] 3 15:58:22 Abnormal weight 94244585 Active 2022 Vika Lubin CMA null, [facility] [employer] [facility] 3 09:46:35 Hypercortisol ism 41614318 Active 2022 Alicia Nichols MD [address] [address], [place], [address] , [facility] [employer] [facility] 3 11:17:54 Problem Notes None recorded. Procedures Surgical History Date Name Laterality Status Provider Name and Address Organization Details Recorded Time 2 Carpal tunnel surgery completed Not Available [facility] 10/31/2022 00:59:26 delivery completed Not Available [facility] 10/31/2022 00:59:26 Imaging Results None recorded. Procedure Notes None recorded. Medical Equipment None Reported. Allergies Allergen ID Allergen Name Allergen Category Reaction Reaction Severity Criticality Documentation Date Start Date Code Code System Note Provider Name and Address Organization Details Recorded Time 13036 coconut extract food,medi cation Not available Not available Not available 11/08/2022 64326 48 RxNorm HIVES Joyce Zuniga MA null, [facility] [employer] [facility] 3 10:57:49 Medications Name Sig Start Date Stop [...] Available TRUEplus Pen Needle 32 gauge x 5/32 USE ONCE DAILY DIRECTED active Not Available [...] weight Body temperature Heart rate Oxygen saturation Systolic And Diastolic Provider Name and Address Organization Details Last Updated DateTime 3 160.02 cm 48.5 kg/m2 720401. 31 g 97.9 [degF] 66 /min 98 % 116/70 mm[Hg] Joyce Zuniga MA [place] - [facility] [employer] 3 10:57:18 Date Recorded Body height Provider Name an d Address Organization Details Last Updated DateTime 11/27/2022 160.02 cm Marta Quintero [facility] [employer] [facility] [employer] [facility] 11/27/2022 09:18:07 Date Recorded Body height Body temperature Heart rate Body mass index (BMI) Body weight Systolic And Diastolic Provider Name and Address Organization Details Last Updated DateTime 3 160.02 cm 98.4 [degF] 89 /min 48.9 kg/m2 245951. 49 g 134/76 mm[Hg] Raza Mathis RN [facility] [employer] 3 15:45:13 Date Recorded Body height Body mass index (BMI) Body weight Body temperature Oxygen saturation Heart rate Systolic And Diastolic Provider Name and Address Organization Details Last Updated DateTime 3 160.02 cm 48.9 kg/m2 515218. 49 g 98.2 [degF] 98 % 76 /min 138/72 mm[Hg] Vika Lubin [facility] [employer] 3 09:48:08 Date Recorded Body height Body mass index (BMI) Body weight Body temperature Respiratory rate Heart rate Systolic And Diastolic Provider Name and Address Organization Details Last Updated DateTime 3 160.02 cm 44.7 kg/m2 049722. 71 g 97.8 [degF] 14 /min 70 /min 122/87 mm[Hg] Wandy Kaplan RN [facility] [employer] 3 11:01:12 Social History Question Answer Notes LastModified by Organizat ion Details LastModified Time Tobacco Smoking Status Current Every Day Smoker Cande isidro [place] [employer] [facility] [employer] 11/08/2022 10:44:24 What Is Your Level Of Caffeine Consumption? None [id number] Information not available 10/31/2022 What Type Of Diet Are You Following? REGULAR [email or web address] Information not available 11/08/2022 What Is Your Relationship Status? Single [id number] Information not available 10/31/2022 Do You Use Your Seat Belt Or Car Seat Routinely? Yes [email or web address] Information not available 01/09/2023 Do You Participate In Social Media? Yes [email or web address] Information not available 01/09/2023 Has Tobacco Cessation Counseling Been Provided? No [email or web address] Information not available 11/08/2022 Do You Have Any Dietary Restrictions? No LOW CARBS [email or web address] Information not available 11/08/2022 Sex: Female Functional Status Question Answer Note LastModified by Organizat ion Details LastModified Time Do you use any illicit or recreational drugs? No [email or web address] Information not available 11/08/2022 What is your level of alcohol consumption? 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 Moderate [email or web address] Information not available 11/08/2022 Mental Status Question Answer Note LastModified by Organization D etails LastModified Time Do you feel stressed (tense, restless, nervous, or anxious, or unable to sleep at night)? [id number] [email or web address] Information not available 01/09/2023 Family History Relationship Description Onset Age of this Age Resolved Age Notes LastModified by Organization Details LastModified Time Paternal Grandmother Diabetes mellitus [email or web address] Not available 2022 10:58:12 Father Hypertensive disorder [email or web address] Not available 2022 10:58:32 Mother Hypertensive disorder [email or web address] Not available 2022 10:58:32 Maternal Aunt Family history of malignant neoplasm [email or web address] Not available 2022 10:58:51 Medical History Condition Response OBESITY Y HAVE YOU BEEN HOSPITALIZED OR SEEN IN [facility] ER IN THE PAST YEAR ? Y Gynecological History Statement/Question Response Menses Monthly Y Date of LMP 11/22/2022 Obstetrics History GPAL:G 2 P 0 0 0 2 Type Value Living 2 Total 2 Past Encounters Encounter ID Performer Location Encounter Start Date Encounter Closed Date Diagnosis/Indication Diagnosis SNOMED-CT Code Diagnosis ICD10 Code Diagnosis IMO Codes Diagnosis Note [id number] [facility] [address] [place] [address] 12/10/2021 00:00:00 12/10/2021 17:46:02 [id number] [facility] [address] [place] [address] 03/12/2022 00:00:00 03/12/2022 11:33:12 [id number] [facility] [address] [place] [address] 06/10/2022 00:00:00 06/10/2022 22:02:32 [id number] Alicia Nichols MD [facility] [address] [place], [place] [address] 10/21/2022 00:00:00 10/21/2022 16:50:51 [id number] CRISTIAN Polanco [facility] Primary Care [facility] [address] [facility] [address] [place] [address] 11/08/2022 10:42:36 11/08/2022 14:07:46 Prediabetes 466768770 R73.03 Will get labs from previous PCP. Not on any medication s.She is also followed by endocrinol ogalverto. Migraine 99121276 G43.90 9 Takes sumatripta n when needed and zofran to help with nausea.Fol lowed by neurology. Intertrigo 41254490 L30. 4 Will use Triamcinol one and ketoconazo le when needed. Morbid obesity 346379467 E66.[address] Nichols. She has been on victoza in the past but no longer covered due to insurance. Has considered weight loss surgery but unable to quit smoking. Nicotine dependence 5629 4008 F17.200 1ppd since age 14 (states she stopped for a 3 year period when she was ). Poor focus 600033236 H52 .7 ADHD vs. seasonal depression .States she is having trouble focusing and getting tasks done at work and at home. She states she was never diagnosed with ADHD when she was younger but she did not get diagnosis. Will send referral to psychiatry to get evaluated. [id number] CRISTIAN Polanco [facility] Primary Care [facility] [address] [place] [address] 11/27/2022 09:15:59 11/27/2022 12:01:24 [id number] Arleen Vu MD [facility] Primary Care Marcia boles [address] [facility] [address] [place] [address] 01/09/2023 15:37:48 01/09/2023 16:39:41 Injury of finger 59384147 S69.92XA [id number] CRISTIAN Polanco [facility] Primary Care Marcia boles [address] [facility] [address] [place] [address] 01/14/2023 09:43:21 01/14/2023 12:46:04 Body mass index 40+ - severely obese 648045111 Z68.42 Goal is to lose about 100lbs.She [...] and and increasing intentiona l exercise/w alking.Nick bashir see if we can find nutritioni st in her network. e would like to to see if injectable s covered, advised it will need PA and cannot guarantee will be covered by insurance. Will send script for amauri, if not covered will do script for flako. 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 Her ACTH was 8 pg/ML - recommende d patient undergo CT of adrenals for further workup. Will refer patient to [place] end[facility] ogalverto due to my resignatio n. She has [...] Recorded Advance Directives Directive None Recorded Payers Insurance Date Sequence Insurance Name Policy Number Policy Roque Covered Member ID Roque Member ID Guarantor Name 04/13/2023 1 [facility] ON OR AFTER 03/01/21 (MEDICAID REPLACEMENT - HMO) Adenike Parry [id number] Adenike Parry Notes Date Note Type Note Provider Name and Address Organization Details Recorded Time 11/08/2022 text/html Pt. here to establish care.Other specialists involved in care: Endocrinology, Neurologist (for headaches), EENT (chronic ear infections).She would like to be evaluated for ADHD. CRISTIAN Polanco [address], [place], [address], [facility] [employer] 11/08/2022 11:28:47 01/09/2023 text/html ROS as noted in the HPI Friday was moving a cooler in a car, and cooler [...] PIP joint. Arleen Vu MD [address], [place], [address], [employer] 01/29/2023 08:03:28 01/14/2023 text/html Pt. here to discuss weight loss. She states she has tried multiple diets and medications with no improvement in weight loss. CRISTIAN Polanco [address], [place], [address], [employer] 01/14/2023 10:14:47 04/15/2023 text/html ROS as noted in the HPI 33 yo female comes in for follow up in management of [...] hair and hair thinning. Alicia Nichols MD [address], [place], [address], [employer] 04/15/2023 12:47:54 OBGyn Episode No OBEpisode recorded.
--- OUTSIDE RECORDS SUMMARY | 2025-08-28 15:17 | XMS_ITS | Clinical Summary ---
Author Organization [facility] [employer] Address [address] [facility] [place] [address] Care Team Providers Care Invoice Classification Clerk Name Role Phone Joshua Peace MD Primary Care Provider [phone] Source Comments [facility] [employer],non-owned Affiliates and Associated Physician Practices is amultiple site organization consisting of ambulatory clinics and hospital sitesin [place], [place], [place] and [place]. This disclosure is being madepursuant to the Care Everywhere program and may not contain all information available regarding this patient. 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
[2025-08-28 15:38] VITALS: BP 121/67; PULSE 73; RESP 16; TEMP 36.6; O2SAT 100
--- NOTE | 2025-08-28 15:39 | ED_ITS ---
HPI - Extremity Injury (Lower) General Chief Complaint: Extremity Injury, Lower Stated Complaint: right foot pain Time Seen by Provider: 08/28/25 15:39 Focused HPI: Patient is a 35-year-old female who presents to the ER with right foot pain that started approximately 4 days ago. She reports the pain is worsening each day. Patient denies any injury to the area but reports she woke with the pain. She reports the pain is dull unless I hit it just right, then it is sharp at and splint during. Patient reports when she acc identally hits the area the pain travels up her right leg. She denies any calf pain, excessive redness, recent fevers, or significant swelling. Patient reports she has been using Midol and Tylenol at home without pain relief. She denies any medical history relevant to this ER visit. GENERAL: Well-appearing, well-nourished, and in no acute distress. HEAD: Normocephalic, atraumatic. CHEST: Clear to auscultation. ?No respiratory distress. HEART: Regular rate and rhythm.? NEURO: ?Alert and oriented x3. Mild swelling dorsal/lateral aspect pt's R foot Patient screened in triage and initial orders placed.? ?Additional care and disposition to be based upon?diagnostic testing and treatment. Related Data Allergies Allergy/AdvReac Type Severity Reaction Status Date / Time coconut Allergy Intermediate Rash Verified 05/06/25 15:07 [facility] Past Medical History Medical History Headache Obesity Surgical History Surgical History Hx of section History of back surgery H/O hand surgery (~09/2021) Family History Family History Mother Depression Sibling Depression Social History Social History Smoking status: Never smoker Tobacco type: e-cigarettes/vaping Alcohol intake: never Substance use: never Lack of Transportation: No Lack of Food: Never True Current Housing: I Have Housing Concerned About Future Housing: No Difficulty Paying Gas/Electric Bills: No Difficulty Paying for Meds: No Currently Unemployed: No Education: High School Diploma/GED Difficulty w/ Childcare or Family Care: No Course Vital Signs Vital signs: Vital Signs Temperature 36.6 C 08/28/25 15:38 Pulse Rate 73 08/28/25 15:38 Respiratory Rate 16 08/28/25 15:38 Blood Pressure 121/67 08/28/25 15:38 Pulse Oximetry 100 08/28/25 15:38 Oxygen Delivery Room Air 08/28/25 15:38 Temperature 36.6 C 08/28/25 15:38 Pulse Rate 73 08/28/25 15:38 Respiratory Rate 16 08/28/25 15:38 Blood Pressure 121/67 08/28/25 15:38 Pulse Oximetry 100 08/28/25 15:38 Oxygen Delivery Room Air 08/28/25 15:38 MDM Differential Diagnosis Differential Diagnosis: Right calcaneus fracture, right ankle sprain, right foot fracture Imaging Data Radiologist's impression: ITS Impressions Foot X-Ray 08/28/25 15:58 IMPRESSION: 1. No acute fracture. Repeat radiograph after a few days is recommended if symptoms are localized and persistent. Discharge Plan Discharge Clinical Impression: Acute pain of right foot Patient Disposition: Elopement After Seen by Prov Patient Language: Welsh Follow-up/Referrals: Neil,MD Siddharth [Primary Care Provider]
--- OUTSIDE RECORDS SUMMARY | 2025-08-28 17:44 | XMS_ITS | Clinical Summary ---
Author Organization [place] [id number] [facility] Address [address] [place] [address] Care Team Providers Care Finishing Department Supervisor Name Role Phone Arleen Vu MD Primary [...] 08/14/2021 Assessment & Plan (08/14/2021 8:44 AM WOOD CUT ENGRAVER): Overall Condition Chronic Condition: Uncontrolled. Treatment: New Medication: oral tablets and creams prescribed as below. Follow up in 1 month Paresthesia of hand, bilateral 07/24/2021 Assessment & Plan (07/24/2021 9:16 AM WOOD CUT ENGRAVER): Acute with a reported past history of [...] 06/11/2021 Assessment & Plan (08/14/2021 8:45 AM WOOD CUT ENGRAVER): Overall Condition Chronic Condition: Uncontrolled. Treatment: Recommended [...] on file Legal Sex Female 7:53 PM WOOD CUT ENGRAVER Gender Identity Female 10/23/2020 10:30 AM WOOD CUT ENGRAVER Sexual Orientation Straight 10/23/2020 10 :30 AM WOOD CUT ENGRAVER Obstetrics History Para Term AB IAB SAB [...] HPV MRNA E6/E7 Routine 10/31/2017 11:16 AM WOOD CUT ENGRAVER from Last 3 Months or Most Recently Relevant to Health Maintenance Results * ThinPrep Imaging Pap Reflex HPV mRNA E6/E7 (10/31/2017 11:16 AM WOOD CUT ENGRAVER) CLINICAL INFORMATION [facility] HISTORICAL RESULTS Comment:Information not prov ided LMP: MIRENA [facility] HISTORICAL RESULTS PREV. PAP: [facility] HISTORICAL RESULTS Comment:NORMAL PREV. BX: [facility] HISTORICAL RESULTS Comment:INFORMATION NOT PROV IDED SOURCE: [facility] HISTORICAL RESULTS Comment:Cervix, Endocervix STATEMENT OF ADEQUACY: [facility] HISTORICAL RESULTS Comment:Satisfactory for thalia luation. Endocervical/transformation zone component present. INTERPRETATION/RESU LT: [facility] HISTORICAL RESULTS Comment:Negative for intraep ithelial lesion or malignancy. COMMENT: [facility] HISTORICAL RESULTS Comment:This Pap test has be en evaluated with computer assisted technology. SUPERVISOR DRY CELL ASSEMBLY: [facility] HISTORICAL RESULTS Comment:MLO, CT(ASCP) CT scr eening location: [address] [address] [place] [address] 10/31/2017 11:1 6 AM WOOD CUT ENGRAVER 11/06/2017 1:05 PM WOOD CUT ENGRAVER Narrative [facility] HISTORICAL RESULTS - 11/06/2017 12:34 PM WOOD CUT ENGRAVER 0 PERFORMING LAB: , [facility] [place] [address] [facility] [address] Murphy Ramirez MD us Latoya Dawson MD LAB PATHOLOGY ORDERABLES Fin al Result [facility] HISTORICAL RESULTS from Last 3 Months or Most Recently Relevant to Health Maintenance Insurance [facility] Care Teams Finishing Department Supervisor Relationship Specialty Start Date End Date Arleen Vu MD [address] [place] [address] DR RENEE [address] [place] [id number] PCP - General Family Medicine 01/10/23
== END 2025-08-28 19:15 | disposition left against medical advice (07) ==
LOC: ANHED 17:41
PROVIDERS: Emergency Provider Registered Nurse; PCP Internal Medicine
DX: M79.671 Pain in right foot (principal)
CPT/HCPCS: 73630; 99283